=== PATIENT | female | born 1990 | race Caucasian/White ===

== ENCOUNTER 2017-10-11 17:53 | Inpatient (IN) ==
[2017-10-11 20:25] LABS: Bilirubin,Urine Negative (Negative); Blood,Urine Large (Negative); Clarity,Urine Cloudy (Clear); Color,Urine Yellow (Yellow); Glucose,Urine (UA) Normal (Normal); Ketones,Urine Negative (Negative); Leukocyte Esterase,Urine Negative (Negative); Nitrite,Urine Negative (Negative); PH,Urine 5.5 pH Units (5.0-8.0); Protein,Urine 30 mg/dL (Neg-Trace); Specific Gravity,Urine 1.025 (1.010-1.025); Urobilinogen,Urine Normal (Normal)
[2017-10-11 20:26] LABS: Bacteria,Urine None Seen per hpf (None-Few); Hyaline Casts,Urine None Seen per lpf (None-Few); Squamous Epithelial Cell,Urine Many per lpf (None-Few)
[2017-10-11 20:38] LABS: Mean Corpuscular Hemoglobin 16.1 pg (28.0-33.3); Mean Corpuscular Volume 64.2 fL (83.0-100.0); Mean Platelet Volume 8.5 fL (9.4-12.4); Nucleated Red Blood Cells 0.2 /100 WBC (0); Platelet Count 414 K/mcL (140-400); Red Blood Count 4.67 M/mcL (3.82-4.97); Red Cell Distribution Width 27.3 % (11.5-14.5)
[2017-10-11 20:54] LABS: Alanine Aminotransferase 25 Units/L (7-52); Albumin 4.1 g/dL (3.5-5.7); Alkaline Phosphatase 73 Units/L (34-104); Amylase 15 Units/L (29-103); Aspartate Amino Transferase 17 Units/L (13-39); BUN/Creatinine Ratio 23 (6-26); Bilirubin,Direct 0.1 mg/dL (0.0-0.2); Bilirubin,Indirect 0.2 mg/dL (0.0-1.2); Bilirubin,Total 0.3 mg/dL (0.3-1.0); Blood Urea Nitrogen 15 mg/dL (6-20); Calcium 9.8 mg/dL (8.6-10.3); Carbon Dioxide 25 mEq/L (23-29); Chloride 99 mEq/L (98-107); Globulin 4.2 g/dL (2.4-3.5); Glucose 196 mg/dL (70-105); Lipase 22 Units/L (11-82); Osmolality,Calculated 286 (280-300); Sodium 135 mEq/L (136-145); Total Protein 8.3 g/dL (6.4-8.9); eGFR For African Americans > 60 (> 60); eGFR For Non-African Americans > 60 (> 60)
[2017-10-11 20:59] LABS: Hemoglobin 7.5 g/dL (11.5-15.4)
[2017-10-11] MEDS ORDERED: 0.9 % Sodium Chloride 1,000 ML IVC ONE (21:38)
--- NOTE | 2017-10-11 21:42 | Emergency Department Note ---
Disposition Clinical Impression: Abdominal pain Qualifiers: Abdominal location: right upper quadrant Qualified Code(s): R10.11 - Right upper quadrant pain GI bleeding Qualifiers: GI bleed type/associated pathology: unspecified gastrointestinal hemorrhage type Qualified Code(s): K92.2 - Gastrointestinal hemorrhage, unspecified Anemia Qualifiers: Anemia type: unspecified type Qualified Code(s): D64.9 - Anemia, unspecified Disposition: Admitted As Inpatient Condition: Good Referrals: Jimmy Vargas HEALTH INFORMATION PROVIDER [Advanced Practice Nurse] - Forms: ED Satisfaction Letter, Work/School Release Time of Disposition: 22:27 Abdominal Pain HPI - General Chief Complaint: ED Abdominal Pain Stated Complaint: Anemia / Possible Sepsis Time Seen by Provider: 10/11/17 21:14 Source: patient Mode of arrival: ambulatory Limitations: no limitations Nursing Notes Reviewed: Yes Vital Signs Reviewed: Yes - History of Present Illness HPI Narrative: 27-year-old female with history of anemia arrives to the emergency department with nausea, vomiting, tachycardia, right upper quadrant pain. The patient's nausea has been ongoing for the past couple weeks and states that she has been experiencing intermittent abdominal pain since then. She states it worsens when she eats. She denies any other complaints at this time. The patient went to PCPs office 3 days ago for evaluation or this right upper quadrant pain and nausea. She had labs drawn at that time which demonstrated anemia with a hemoglobin of 6.5. The patient was called today and instructed to come to the emergency department for evaluation. Upon arrival to the emergency department her symptoms still continued with the patient's hemoglobin was found to be 7.5. The patient denies any other new complaints. She denies any vaginal bleeding that is abnormal for her but she states she is very heavy menstrual periods. In addition the patient states that she has had intermittent episodes where she has had black tarry stools. The patient states she was evaluated for this roughly a year ago and had endoscopy which demonstrated no acute process. She was also transfused as well. Pt Subjective Complaint: abdominal pain Consistency: intermittent Pain Scale: 4 Quality: cramping, sharp Migration to: no migration Improves with: nothing Worsens with: nothing Associated symptoms: Reports: nausea - Related Data Allergies Allergy/AdvReac Type Severity Reaction Status Date / Time No Known Allergies Allergy Verified 10/11/17 19:59 Constitutional: Denies: fever, chills, weakness Cardiovascular: Denies: chest pain Respiratory: Denies: cough Gastrointestinal: Reports: abdominal pain, nausea. Denies: vomiting, diarrhea, constipation Genitourinary: Denies: urgency Musculoskeletal: Denies: back pain Neurological: Denies: headache Abdominal Pain PMH - Past Medical History Medical history: Reports: diabetes, hyperlipidemia, hypertension Female Surgical History: Reports: no surgical history Psychiatric history: Reports: no psych history - Social History Smoking status: Never smoker Alcohol use: Reports: none Drug use: Reports: none Physical Exam - General Limitations: no limitations General appearance: alert, in no apparent distress - Neck Neck exam: Present: normal inspection, full ROM, trachea midline - Chest Chest inspection: Present: normal inspection, symmetric chest wall rise - Respiratory Respiratory exam: Present: normal lung sounds bilaterally - Cardiovascular Cardiovascular exam: Present: regular rate, normal rhythm, normal heart sounds - Abdominal Exam Abdominal exam: Present: soft, tenderness (RUQ, Epigastric). Absent: distention , guarding, rebound, rigidity - Rectal Exam Rectal exam: Present: heme (+) stool - Extremities Exam Extremities exam: Present: normal inspection, full ROM. Absent: tenderness, pedal edema Course - Reevaluation(s) Reevaluation #1: Bedside ultrasound revealed no enlargement of the gallbladder, no gallbladder wall thickening, no pericholecystic fluid, no enlargement of the common bile duct. There was a small amount of gallbladder sludge noted near the neck. Time: 21:47 Reevaluation #2: Patient is hemoccult positive. Time: 22:04 Vital Signs Temperature 99.5 F 10/11/17 19:59 Pulse Rate 134 10/11/17 19:59 Respiratory Rate 16 10/11/17 19:59 Blood Pressure 157/83 10/11/17 19:59 O2 Sat by Pulse Oximetry 100 10/11/17 19:59 Temperature 99.5 F 10/11/17 19:59 Pulse Rate 110 10/11/17 22:21 Respiratory Rate 20 10/11/17 22:21 Blood Pressure 132/81 10/11/17 22:21 O2 Sat by Pulse Oximetry 100 10/11/17 22:21 Oxygen Delivery Oxygen Delivery Room Air Abdominal Pain - MDM Narrative Medical decision making narrative: Workup in the emergency department demonstrates concern for biliary colic. The patient was initially noted to be tachycardic with a heart rate in the 130s on reevaluation is 1:15. She states that she feels very dizzy on examination. The patient appears to be symptomatic with her anemia. The patient's hemoglobin 1 day ago was roughly 6.5 and on repeat labs today it is 7.5 with likely hemoconcentration. The patient has an extensive history of anemia but given the patient's symptomatic nature I am concerned about the patient and will likely admit the patient to the hospital. Accepted by Dr. Medina. - Medical Records Medical records reviewed: Yes I reviewed the patient's medical records. - Lab Data Lab results reviewed: Yes I reviewed the patient's lab results. Result diagrams: 10/11/17 20:03 10/11/17 20:03 Lab Results 10/11/17 10/11/17 10/11/17 Range/Units 20:03 20:03 20:10 WBC 12.9 H (4.3-11.1) K/mcL RBC 4.67 (3.82-4.97) M/mcL Hgb 7.5 L (11.5-15.4) g/dL Hct 30.0 L (35.3-44.9) % MCV 64.2 L (83.0-100.0) fL MCH 16.1 L (28.0-33.3) pg MCHC 25.0 L (31.6-35.5) g/dL RDW 27.3 H (11.5-14.5) % Plt Count 414 H (140-400) K/mcL MPV 8.5 L (9.4-12.4) fL Seg Neutrophils % 70.0 % Lymphocytes % 16.0 % Monocytes % 10.0 % Eosinophils % 2.0 % Basophils % 2.0 % Neutrophils # 9.0 H (1.6-8.9) K/mcL Lymphocytes # 2.1 (0.6-4.6) K/mcL Monocytes # 1.3 (0.0-1.3) K/mcL Eosinophils # 0.3 (0.0-0.6) K/mcL Basophils # 0.3 H (0.0-0.2) K/mcL Nucleated RBCs/100 WBC 0.2 H (0) /100 WBC Platelet Estimate Slight increase H (Normal) Polychromasia 1+ A (Not Present) Poikilocytosis 1+ A (Not Present) Anisocytosis 3+ A (Not Present) Sodium 135 L (136-145) mEq/L Potassium 4.0 (3.5-5.1) mEq/L Chloride 99 (98-107) mEq/L Carbon Dioxide 25 (23-29) mEq/L BUN 15 (6-20) mg/dL Creatinine 0.65 (0.60-1.20) mg/dL Est GFR ( Amer) > 60 (> 60) Est GFR (Non-Af Amer) > 60 (> 60) BUN/Creatinine Ratio 23 (6-26) Glucose 196 H (70-105) mg/dL Calculated Osmolality 286 (280-300) Calcium 9.8 (8.6-10.3) mg/dL Total Bilirubin 0.3 (0.3-1.0) mg/dL Direct Bilirubin 0.1 (0.0-0.2) mg/dL Indirect Bilirubin 0.2 (0.0-1.2) mg/dL AST 17 (13-39) Units/L ALT 25 (7-52) Units/L Alkaline Phosphatase 73 (34-104) Units/L Serum Total Protein 8.3 (6.4-8.9) g/dL Albumin 4.1 (3.5-5.7) g/dL Globulin 4.2 H (2.4-3.5) g/dL Albumin/Globulin Ratio 1.0 L (1.1-2.2) Amylase 15 L (29-103) Units/L Lipase 22 (11-82) Units/L Urine Color Yellow (Yellow) Urine Clarity Cloudy A (Clear) Urine pH 5.5 (5.0-8.0) pH Units Ur Specific [place] 1.025 (1.010-1.025) Urine Protein 30 H (Neg-Trace) mg/dL Urine Glucose (UA) Normal (Normal) mg/dL Urine Ketones Negative (Negative) mg/dL Urine Blood Large H (Negative) Urine Nitrite Negative (Negative) Urine Bilirubin Negative (Negative) Urine Urobilinogen Normal (Normal) mg/dL Ur Leukocyte Esterase Negative (Negative) Urine Microscopic RBC 5-15 H (0-3) per hpf Urine Microscopic WBC 5-15 H (0-3) per hpf Ur Squamous Epith Cells Many H (None-Few) per lpf Urine Bacteria None Seen (None-Few) per hpf Hyaline Casts None Seen (None-Few) per lpf Ur Culture Indicated? NO (NO) Urine Test (Negative) 10/11/17 Range/Units 20:10 WBC (4.3-11.1) K/mcL RBC (3.82-4.97) M/mcL Hgb (11.5-15.4) g/dL Hct (35.3-44.9) % MCV (83.0-100.0) fL MCH (28.0-33.3) pg MCHC (31.6-35.5) g/dL RDW (11.5-14.5) % Plt Count (140-400) K/mcL MPV (9.4-12.4) fL Seg Neutrophils % % Lymphocytes % % Monocytes % % Eosinophils % % Basophils % % Neutrophils # (1.6-8.9) K/mcL Lymphocytes # (0.6-4.6) K/mcL Monocytes # (0.0-1.3) K/mcL Eosinophils # (0.0-0.6) K/mcL Basophils # (0.0-0.2) K/mcL Nucleated RBCs/100 WBC (0) /100 WBC Platelet Estimate (Normal) Polychromasia (Not Present) Poikilocytosis (Not Present) Anisocytosis (Not Present) Sodium (136-145) mEq/L Potassium (3.5-5.1) mEq/L Chloride (98-107) mEq/L Carbon Dioxide (23-29) mEq/L BUN (6-20) mg/dL Creatinine (0.60-1.20) mg/dL Est GFR ( Amer) (> 60) Est GFR (Non-Af Amer) (> 60) BUN/Creatinine Ratio (6-26) Glucose (70-105) mg/dL Calculated Osmolality (280-300) Calcium (8.6-10.3) mg/dL Total Bilirubin (0.3-1.0) mg/dL Direct Bilirubin (0.0-0.2) mg/dL Indirect Bilirubin (0.0-1.2) mg/dL AST (13-39) Units/L ALT (7-52) Units/L Alkaline Phosphatase (34-104) Units/L Serum Total Protein (6.4-8.9) g/dL Albumin (3.5-5.7) g/dL Globulin (2.4-3.5) g/dL Albumin/Globulin Ratio (1.1-2.2) Amylase (29-103) Units/L Lipase (11-82) Units/L Urine Color (Yellow) Urine Clarity (Clear) Urine pH (5.0-8.0) pH Units Ur Specific [place] (1.010-1.025) Urine Protein (Neg-Trace) mg/dL Urine Glucose (UA) (Normal) mg/dL Urine Ketones (Negative) mg/dL Urine Blood (Negative) Urine Nitrite (Negative) Urine Bilirubin (Negative) Urine Urobilinogen (Normal) mg/dL Ur Leukocyte Esterase (Negative) Urine Microscopic RBC (0-3) per hpf Urine Microscopic WBC (0-3) per hpf Ur Squamous Epith Cells (None-Few) per lpf Urine Bacteria (None-Few) per hpf Hyaline Casts (None-Few) per lpf Ur Culture Indicated? (NO) Urine Test Negative (Negative) Attestation Statement - Attestation Attestation: I, Cy Briggs DO, examined this patient [id number] and my medical decision-making was reviewed with Ge Quezada DO, Resident Physician. I agree with the documented findings, disposition and treatment plan as described except to the extent set forth below. Please see my progress notes for details. 37-year-old female presents emergency room at the request of her primary care provider for evaluation of an abnormal lab. Patient was found to have a hemoglobin of 6.5 approximately 4 days ago. Patient has had chronic anemia. She is currently on iron and started on control medication. She has a long-standing history of abnormal menses and heavy menses. Patient denies any trauma or injuries. Denies any fevers or chills chest pain shortness of breath headache or vision change. Patient is resting comfortably in the bed no distress at this time. She did do some pain in her right upper quadrant of her abdomen after eating food. She has had this on and off for the last several days to even weeks. Patient denies any other specific surgical history other medical issues this time onset of hypertension hyperlipidemia and diabetes. Physical exam is unremarkable except as being a morbidly obese female some mild right upper quadrant tenderness. Neurological her heart is regular but tachycardic. Abdomen is soft. She has no guarding no rigidity. She denies any vaginal discharge bleeding or urinary symptoms at this time. Bedside ultrasound was utilized showing what appears to be a normal-appearing gallbladder with normal dimensions no wall thickening no ductal dilation and no pericholecystic fluid. The lab workup this time except for slightly elevated white blood cell count as well as a hemoglobin of 7.5. She had a previous hemoglobin of 6.5. This is a 1 g increase 4 days. Patient Hemoccult testing completed in emergency room the did appear to be positive. She has no history of peptic ulcer or lower gastrointestinal bleed. Patient will be discussed at length with the findings as well as recommendations. She will most likely require admission for possible EGD and colonoscopy. Patient's labs are consistent with a microcytic anemia. Disposition to be determined. See detailed documentation of the physical exam, medical intervention, medical decision-making and disposition in the resident physician's note. No critical care applied to this patient's treatment course 2225 Patient is been hemodynamically stable. Hospitalist was contacted for admission. They are comfortable with the disposition treatment course plan. Patient is otherwise resting comfortably in the bed. Admission process will be completed at this time.
[2017-10-11 21:50] LABS: Basophils # 0.3 K/mcL (0.0-0.2); Eosinophils # 0.3 K/mcL (0.0-0.6); Lymphocytes # 2.1 K/mcL (0.6-4.6); Monocytes # 1.3 K/mcL (0.0-1.3)
[2017-10-11 21:51] LABS: Anisocytosis 3+ (Not Present)
[2017-10-11 21:52] LABS: Poikilocytosis 1+ (Not Present); Polychromasia 1+ (Not Present)
--- NOTE | 2017-10-12 02:40 | Internal Med History&Physical ---
Date of Encounter: 10/12/17 Time of Encounter: 02:36 Assessment and Plan (1) Diabetes 1.5, managed as type 2 Current visit: Yes Status: Chronic Chronic resume home medication and place on sliding scale (2) HTN (hypertension) Current visit: Yes Status: Chronic Chronic and well controlled Qualifiers: Hypertension type: essential hypertension Qualified Code(s): I10 - Essential (primary) hypertension (3) Obesity Current visit: Yes Status: Chronic Qualifiers: Obesity type: due to excess calories Obesity classification: unspecified obesity classification Serious obesity comorbidity presence: unspecified whether serious comorbidity present Qualified Code(s): E66.09 - Other obesity due to excess calories (4) Hyperlipidemia Current visit: Yes Status: Chronic Chronic check lipid profile in a.m. Qualifiers: Hyperlipidemia type: pure hypercholesterolemia Qualified Code(s): E78.00 - Pure hypercholesterolemia, unspecified; E78.0 - Pure hypercholesterolemia (5) Polycystic ovarian disease Current visit: Yes Status: Acute Possible contribution to her anemia with heavy menstrual bleeding (6) Abdominal pain Current visit: Yes Status: Acute Epigastric pain worse with eating is very suggestive of gastric ulcer Qualifiers: Abdominal location: epigastric Qualified Code(s): R10.13 - Epigastric pain (7) Anemia Current visit: Yes Status: Acute Anemia with low MCV very likely iron deficiency anemia Qualifiers: Anemia type: iron deficiency Iron deficiency anemia type: unspecified iron deficiency Qualified Code(s): D50.9 - Iron deficiency anemia, unspecified (8) GI bleeding Current visit: Yes Status: Acute GI bleed with intermittent black stools suggestive of upper GI bleed very likely gastric ulcer will keep nothing by mouth consult GI Qualifiers: GI bleed type/associated pathology: gastric ulcer Qualified Code(s): K25.4 - Chronic or unspecified gastric ulcer with hemorrhage Internal Medicine - H&P: HPI Chief complaint: severe anemia Admitted From: Emergency Dept Plans for Post Hospital Care: Home History of present illness: Ms. Loo is a 27 year old female Patient with history of diabetes, obesity, high cholesterol, hypertension, polycystic ovarian syndrome being controlled with bith control pill. Patient was seen by primary physician due to right upper quadrant pain with some nausea lab drawn in the office 3 days ago hemoglobin came back 6.5 patient was called and sent to the emergency room for further evaluation. Patient reports she had nausea vomiting and right upper quadrant pain for about 2 weeks pain usually worse after she eats also stated that she has heavy menstrual. which is being controlled with control pill also has had intermittent black stools emergency room here hemoglobin was 7.5 heart rate was 130 sinus patient also has some symptoms of lightheadedness. In the emergency room she was heme positive stool Being admitted for a GI evaluation. Past Med Surg Social Fam HX - Past Medical History Medical history: diabetes, hyperlipidemia, hypertension Psychiatric history: no psych history - Social History Smoking Status: Never smoker Alcohol use: none Drug use: none - Family History Mother Hx Family Cancer: Yes (Thyroid) Hx Family Reproductive Disorders: (Ovarian/Cervial Ca) Internal Medicine - H&P: Meds 3 Allergy/AdvReac Type Severity Reaction Status Date / Time No Known Allergies Allergy Verified 10/11/17 19:59 ROS unobtainable: other All Systems PM: A 10-system review of systems was performed and is negative for pertinent findings except as documented above in the HPI. - Constitutional Vitals: Temp Pulse Resp BP Pulse Ox 98.5 F 113 16 120/79 97 10/12/17 00:47 10/12/17 00:47 10/12/17 00:47 10/12/17 00:47 10/12/17 00:47 General appearance: Present: obese - Eye Eye exam: Present: PERRL, conjuntiva pink, sclera anicteric Pupils: Present: PERRL - Neck Neck exam general surgery: Present: supple, trachea midline. Absent: lymphadenopathy - Respiratory Respiratory exam: Present: CTAB. Absent: accessory muscle use, rales, rhonchi, wheezes - Cardiovascular Cardiovascular exam: Present: RRR, +S1, +S2, tachycardia. Absent: diastolic murmur, gallop, rubs, systolic murmur - GI/Abdominal GI/Abdominal exam: Present: normal bowel sounds, soft, no peritoneal signs. Absent: distended, tenderness - Extremities Exam Extremities exam: Present: warm, radial pulses palpable and symmetrical. Absent : calf tenderness, cyanotic, pedal edema Internal Med - H&P Results - Labs CBC & Chem 7: 10/11/17 20:03 10/11/17 20:03
[2017-10-12] MEDS ORDERED: Naloxone 0.4 MG/ML INJ IVP PRN (02:44)
[2017-10-12] MEDS: 0.9 % Sodium Chloride 1,000 ML IVC SCH ×2 (04:26→20:07)
[2017-10-12 06:20] LABS: Hemoglobin 6.3 g/dL (11.5-15.4)
[2017-10-12 06:21] LABS: Basophils # 0.1 K/mcL (0.0-0.2); Basophils % 0.5 %; Eosinophils # 0.3 K/mcL (0.0-0.6); Eosinophils % 2.7 %; Hematocrit 25.9 % (35.3-44.9); Immature Granulocytes % 0.4 % (0-4); Lymphocytes # 3.4 K/mcL (0.6-4.6); Lymphocytes % 35.2 %; Mean Corpuscular HGB Conc 24.3 g/dL (31.6-35.5); Mean Corpuscular Hemoglobin 15.8 pg (28.0-33.3); Mean Corpuscular Volume 64.9 fL (83.0-100.0); Mean Platelet Volume 8.6 fL (9.4-12.4); Monocytes # 0.5 K/mcL (0.0-1.3); Neutrophils # 5.5 K/mcL (1.6-8.9); Platelet Count 345 K/mcL (140-400); Red Blood Count 3.99 M/mcL (3.82-4.97); Red Cell Distribution Width 26.6 % (11.5-14.5); Segmented Neutrophils % 56.2 %
[2017-10-12 06:32] LABS: % Iron Saturation 3 % (15-50); Iron 15 mcg/dL (50-170); Transferrin 374 mg/dL (203-362)
[2017-10-12 06:33] LABS: Chol/HDL Ratio 4.8 (0-4.9); Cholesterol 100 mg/dL (< 200); HDL Cholesterol 21 mg/dL (40-59); Triglycerides 439 mg/dL (< 150)
[2017-10-12 06:34] LABS: Alanine Aminotransferase 19 Units/L (7-52); Albumin 3.3 g/dL (3.5-5.7); Alkaline Phosphatase 59 Units/L (34-104); Aspartate Amino Transferase 15 Units/L (13-39); BUN/Creatinine Ratio 27 (6-26); Bilirubin,Total 0.4 mg/dL (0.3-1.0); Blood Urea Nitrogen 13 mg/dL (6-20); Calcium 8.6 mg/dL (8.6-10.3); Carbon Dioxide 23 mEq/L (23-29); Chloride 103 mEq/L (98-107); Globulin 3.3 g/dL (2.4-3.5); Glucose 156 mg/dL (70-105); Magnesium 1.9 mg/dL (1.6-2.6); Osmolality,Calculated 285 (280-300); Sodium 136 mEq/L (136-145); Total Protein 6.6 g/dL (6.4-8.9); eGFR For African Americans > 60 (> 60); eGFR For Non-African Americans > 60 (> 60)
[2017-10-12 08:10] LABS: Anisocytosis 3+ (Not Present)
[2017-10-12 08:11] LABS: Polychromasia 1+ (Not Present)
[2017-10-12 08:12] LABS: Hypochromasia Present (Not Present); Microcytosis Present (Not Present); Platelet Estimate Normal (Normal)
[2017-10-12] MEDS: Pantoprazole 40 MG VIAL IVP SCH (09:15)
--- NOTE | 2017-10-12 10:38 | Gastroenterology Consult Note ---
<Anusha Ray - Last Filed: 10/12/17 10:58> Date of Encounter: 10/12/17 Time of Encounter: 09:50 - Assessment and plan (1) Anemia Current Visit: Yes Status: Acute Assessment and plan: 27 year old female who presents with RUQ pain and anemia. Hgb is 6.3 this am, will transfuse 2 units prbcs. Will plan for EGD today, may need colonoscopy. Iron is also low, will give iron infusion. She had episode of anemia 2 years ago with normal EGD/colonoscopy. She is microcytic on labs. She also reports heavy menstrual periods. Continue, PPI, monitor H&H, may need hematology consult. Qualifiers: Anemia type: iron deficiency Iron deficiency anemia type: unspecified iron deficiency Qualified Code(s): D50.9 - Iron deficiency anemia, unspecified - Time Spent With Patient Total time spent is greater than 50% in coordination of care (as documented) at patient's floor/unit and/or counseling patient: GI History of Present Illness - Data of Consult Patient: new to practice Consult date: 10/12/17 Requesting Physician: Charly Maza MD - Consult Narrative Reason for consult: anemia History of present illness: Ms. Loo is a 27 year old female with history of uncontrolled diabetes, last Hgb A1c 8.1, obesity, hyperlipidemia, hypertension, polycystic ovarian syndrome being controlled with control pill. Patient was recently seen by PCP for RUQ pain and GB us was ordered and labs at that time showed Hgb 6.5. She was sent to ER for evaluation. In ER her hgb was 7.5, has dropped to 6.3 today. She reports near constant nausea for the past 2 weeks worse after she eats. She also reports tarry stools 2-4 times a month for the past few months as well as heavy menstrual periods. In ER her heart rate was 130 sinus rhythm and she had symptoms of lightheadedness. Stool was positive for occult blood in the past. She reports an episode of anemia in 2016 which required blood transfusion and she had scopes done at [facility] at that time. She does reports she started on iron supplements about a month ago. Colonoscopy: 2016 normal per pt EGD: 2016 normal per pt NSAIDS/ASA: denies Anticoagulants: denies Past Med Surg Social Fam HX - Past Medical History Medical history: diabetes, hyperlipidemia, hypertension Psychiatric history: no psych history - Social History Smoking Status: Never smoker Alcohol use: none Drug use: none - Family History Mother Hx Family Cancer: Yes (Thyroid) Hx Family Reproductive Disorders: (Ovarian/Cervial Ca) Review of Systems: GI: as per [place] GENERAL: denies fever or chills EYES: denies yellow discoloration ENT: denies pain with swallowing or difficulty swallowing CARDIO: denies chest pain, palpitations RESP: No Shortness of breath with exertion : denies change in color of urine NEURO: denies any weakness HEME: Denies any bruising MS: denies joint pain, joint swelling or back pain. DERM: denies rash or itching PSYCH: Denies history of anxiety or depression - Constitutional Vitals: Temp Pulse Resp BP Pulse Ox 98.3 F 93 18 135/86 98 10/12/17 07:26 10/12/17 07:26 10/12/17 07:26 10/12/17 07:26 10/12/17 07:26 Exam: CONSTITUTIONAL:~alert, no acute distress.~HEAD:~normocephalic.~EYES:~no jaundice.~NECK:~no obvious swelling.~HEART:~regular rate and rhythm, no murmurs. ~LUNGS:~bilateral good air entry.~ABDOMEN:~non distended, soft, tender epigastric area, no masses pulpable, no organomegaly.~RECTAL EXAM:~Deferred.~ EXTREMITIES:~no clubbing, cyanosis or edema.~SKIN:~pallor noted, no stigmata of chronic liver disease.~NEUROLOGIC:~no obvious focal defect.~~~~ Results - Labs CBC & Chem 7: 10/12/17 05:47 10/12/17 05:47 Labs: Last Result Calcium 8.6 mg/dL (8.6-10.3) 10/12/17 05:47 Iron 15 mcg/dL (50-170) L 10/12/17 05:47 % Saturation 3 % (15-50) L 10/12/17 05:47 Transferrin 374 mg/dL (203-362) H 10/12/17 05:47 Triglycerides 439 mg/dL (< 150) H 10/12/17 05:47 Entire Visit Hgb 6.3 g/dL (11.5-15.4) L 10/12/17 05:47 Hct 25.9 % (35.3-44.9) L 10/12/17 05:47 Total Bilirubin 0.4 mg/dL (0.3-1.0) 10/12/17 05:47 AST 15 Units/L (13-39) 10/12/17 05:47 ALT 19 Units/L (7-52) 10/12/17 05:47 Amylase 15 Units/L (29-103) L 10/11/17 20:03 Lipase 22 Units/L (11-82) 10/11/17 20:03 Consult Discharge Plan - Plan Referrals: Jimmy Vargas OFFSET LITHOGRAPHIC PRESS SETTER [Primary Care Provider] - <Rogerio Jj - Last Filed: 10/12/17 14:09> Date of Encounter: 10/12/17 Time of Encounter: 13:00 - Time Spent With Patient Total time spent is greater than 50% in coordination of care (as documented) at patient's floor/unit and/or counseling patient: GI History of Present Illness - Data of Consult Requesting Physician: Charly Maza MD - Consult Narrative History of present illness: Ms. Loo is a 27 year old female - Constitutional Vitals: Temp Pulse Resp BP Pulse Ox 97.9 F 98 18 146/90 95 10/12/17 13:29 10/12/17 13:29 10/12/17 13:29 10/12/17 13:29 10/12/17 13:29 Results - Labs CBC & Chem 7: 10/12/17 05:47 10/12/17 05:47 Labs: Last Result Calcium 8.6 mg/dL (8.6-10.3) 10/12/17 05:47 Iron 15 mcg/dL (50-170) L 10/12/17 05:47 % Saturation 3 % (15-50) L 10/12/17 05:47 Transferrin 374 mg/dL (203-362) H 10/12/17 05:47 Triglycerides 439 mg/dL (< 150) H 10/12/17 05:47 Entire Visit Hgb 6.3 g/dL (11.5-15.4) L 10/12/17 05:47 Hct 25.9 % (35.3-44.9) L 10/12/17 05:47 Total Bilirubin 0.4 mg/dL (0.3-1.0) 10/12/17 05:47 AST 15 Units/L (13-39) 10/12/17 05:47 ALT 19 Units/L (7-52) 10/12/17 05:47 Amylase 15 Units/L (29-103) L 10/11/17 20:03 Lipase 22 Units/L (11-82) 10/11/17 20:03 - Attending Attestation I have personally performed a face to face evaluation on this patient. I have reviewed and agree with the care plan. History and Exam by me shows: Patient with severe iron deficiency anemia. Does have some epigastric pain and some black stool history. Recommendation: EGD today if negative then colonoscopy
[2017-10-12] MEDS ORDERED: 0.9 % Sodium Chloride 250 ML ONE ×2 (10:48→14:25)
[2017-10-12] MEDS ORDERED: Dextrose Gel 15 GM/37.5 ML TUBE PO PRN ×2 (12:06)
[2017-10-12] MEDS ORDERED: D5% in Water 1,000 ML IVC PRN (12:06)
[2017-10-12] MEDS ORDERED: *HR* Dextrose 50 % in Water (Syg) 50 ML SYRINGE IVP PRN (12:06)
[2017-10-12] MEDS ORDERED: Lidocaine -MPF 2% 2 ML VIAL ONE (12:42)
[2017-10-12] MEDS ORDERED: *HR* Propofol 200 MG/20 ML VIAL IVP ONE (12:42)
[2017-10-12] MEDS: Insulin LISPRO 300 UNITS/3 ML VIAL SQ SCH ×2 (12:55→17:06)
--- NOTE | 2017-10-12 13:43 | Anesthesia Evaluation PreOp ---
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 ANEMIA , HB 6.3, 1 UNIT PRBC INFUSED. PCOS) Anesthesia History: No Prior Anesthetic Complications, Past Anesthesia : No Test: Negative Alcohol Use: none Drug use: none Medications and Allergies Atorvastatin Calcium [Lipitor] 20 mg PO HS 10/12/17 [History] Ferrous Sulfate [Iron] 325 mg PO DAILY 10/12/17 [History] Lisinopril-HCTZ 20-12.5 [Prinzide 20-12.5] 1 tab PO DAILY 10/12/17 [History] Metformin HCl [Glucophage] 1,000 mg PO BID 10/12/17 [History] Norgestimate-Ethinyl Estradiol [Sprintec 28 Day Tablet] 1 tab PO DAILY 10/12/17 [History] 3 Allergy/AdvReac Type Severity Reaction Status Date / Time No Known Allergies Allergy Verified 10/12/17 09:46 - Meds/Allergy Pre-op Review Medications Reviewed: Yes Allergies Reviewed: Yes Anesthesia Results - Labs 10/12/17 05:47 10/12/17 05:47 Anesthesia Exam Vital Signs/O2 Sat/Glucose, Most Recent Temp Pulse Resp BP Pulse Ox 97.9 F 98 18 146/90 95 10/12/17 13:29 10/12/17 13:29 10/12/17 13:29 10/12/17 13:29 10/12/17 13:29 Blood Glucose* 146 - HEENT Mallampati: I Teeth: Normal - Cardiac Rhythm: Regular (TACHY) - Pulmonary Breath Sounds: bilateral Clear Anesthesia Assess/Plan ASA Score: 3 Modified Dryden Scale for Level of Consciousness: Cooperative, oriented, and tranquil Anesthetic Plan: MAC Monitoring Plan: Standard Monitors Recovery Plan: Other Anes Supervising Prov Stmt: I have participated in the evaluation of this patient. Patient informed and consented. Risks, benefits, and alternatives discussed. Patient wishes to proceed.
[2017-10-12] MEDS ORDERED: SODIUM CHLORIDE/NAHCO3/KCL/PEG 4,000 ML SOLN.RECON PO ONE (14:07)
--- NOTE | 2017-10-12 15:21 | Anesthesia Evaluation Post Op ---
Date of Encounter: 10/12/17 Time of Encounter: 14:15 - Vital Signs Vital Signs: Vital Signs/O2 Sat/Glucose, Most Recent Temp Pulse Resp BP Pulse Ox 98.6 F 104 18 121/77 96 10/12/17 15:07 10/12/17 15:07 10/12/17 15:07 10/12/17 15:07 10/12/17 15:07 Blood Glucose* 146 - Lungs Lungs: Clear Ascult./Percussion - Airway Airway: Non-obstructed - Cardiovascular Regular Rate, Irregular Rate (baseline is tachy), Baseline Rhythm - Mental Status Mental Status: Alert & Oriented, Answers Appropriately - Pain Pain Scale: 0 Pain Scale used: Numeric (1 - 10) - Nausea Vomiting Nausea Vomiting: Not Present - Hydration Hydration: NPO Notes: 10/12/17 15:21 naac - Discharge PostOp Status: Transfer Patient to floor
--- NOTE | 2017-10-12 17:48 | Internal Med Progress Note ---
Date of Encounter: 10/12/17 Time of Encounter: 13:30 - Assessment and plan (1) Anemia Current Visit: Yes Status: Acute Assessment and plan: Multi factorial GI bleed + Menorrhgia her Hb this morning 6.3 Ordered 2 U PRBC GI consulted scheduled for EGD today and Colonoscopy in AM Qualifiers: Anemia type: iron deficiency Iron deficiency anemia type: unspecified iron deficiency Qualified Code(s): D50.9 - Iron deficiency anemia, unspecified (2) Iron deficiency anemia Current Visit: Yes Status: Acute Assessment and plan: She does have severe Iron def anemia Will start her on IV Venofer Qualifiers: Iron deficiency anemia type: chronic blood loss Qualified Code(s): D50.0 - Iron deficiency anemia secondary to blood loss (chronic) (3) Menorrhagia Current Visit: Yes Status: Acute Assessment and plan: Seems to be stable with current control pills pt has been on Qualifiers: Menorrahagia type: with regular cycle Qualified Code(s): N92.0 - Excessive and frequent menstruation with regular cycle (4) GI bleeding Current Visit: Yes Status: Acute Assessment and plan: GI consulted Qualifiers: GI bleed type/associated pathology: gastric ulcer Qualified Code(s): K25.4 - Chronic or unspecified gastric ulcer with hemorrhage (5) Polycystic ovarian disease Current Visit: Yes Status: Acute (6) HTN (hypertension) Current Visit: Yes Status: Chronic Assessment and plan: resumed home meds Qualifiers: Hypertension type: essential hypertension Qualified Code(s): I10 - Essential (primary) hypertension (7) Hyperlipidemia Current Visit: Yes Status: Chronic Qualifiers: Hyperlipidemia type: pure hypercholesterolemia Qualified Code(s): E78.00 - Pure hypercholesterolemia, unspecified; E78.0 - Pure hypercholesterolemia (8) Obesity Current Visit: Yes Status: Chronic Qualifiers: Obesity type: due to excess calories Obesity classification: unspecified obesity classification Serious obesity comorbidity presence: unspecified whether serious comorbidity present Qualified Code(s): E66.09 - Other obesity due to excess calories (9) DM2 (diabetes mellitus, type 2) Current Visit: Yes Status: Acute Assessment and plan: on Metformin started on ISS at low Qualifiers: Diabetes mellitus alf insulin use: without alf use Diabetes mellitus complication status: without complication Qualified Code(s): E11.9 - Type 2 diabetes mellitus without complications - Subjective Interval history: Ms. Loo is a 27 year old female with history of diabetes, obesity, high cholesterol, hypertension, polycystic ovarian syndrome being controlled with bith control pill. Patient was seen by primary physician due to right upper quadrant pain with some nausea lab drawn in the office 3 days ago hemoglobin came back 6.5 patient was called and sent to the emergency room for further evaluation. Patient reports she had nausea vomiting and right upper quadrant pain for about 2 weeks. She does have intermittent black stools emergency room here hemoglobin was 7.5 . She is alert, awake and O x 3 . Denied any CP / SOB. - Constitutional Vitals: Temp Pulse Resp BP Pulse Ox 98.0 F 100 17 134/84 95 10/12/17 16:07 10/12/17 16:07 10/12/17 16:07 10/12/17 16:07 10/12/17 16:07 General appearance: Present: A&O X 3, no acute distress, obese, answers questions appropriately - Head Head exam: Present: atraumatic, normal inspection - Neck Neck exam general surgery: Present: supple - Respiratory Respiratory exam: Present: decreased breath sounds. Absent: rales, respiratory distress, rhonchi, wheezes - Cardiovascular Cardiovascular exam: Present: RRR, +S1, +S2. Absent: tachycardia - GI/Abdominal GI/Abdominal exam: Present: normal bowel sounds, soft. Absent: rebound, rigid, tenderness - Extremities Exam Extremities exam: Absent: calf tenderness, pedal edema, tenderness - Back Exam Back exam: Absent: CVA tenderness (L), CVA tenderness (R) - Neurological Exam Neurological exam: Present: alert, oriented X3 - Psychiatric Psychiatric exam: Present: normal affect, normal mood Internal Medicine: Result - Labs CBC & Chem 7: 10/12/17 05:47 10/12/17 05:47 Labs: Short CBC 10/12/17 Range/Units 05:47 WBC 9.7 (4.3-11.1) K/mcL Hgb 6.3 L (11.5-15.4) g/dL Hct 25.9 L (35.3-44.9) % Plt Count 345 (140-400) K/mcL Neutrophils # 5.5 (1.6-8.9) K/mcL BMP 10/12/17 05:47 Sodium 136 Potassium 4.0 Chloride 103 Carbon Dioxide 23 BUN 13 Creatinine 0.48 L Glucose 156 H Calcium 8.6 Liver Function 10/12/17 Range/Units 05:47 Total Bilirubin 0.4 (0.3-1.0) mg/dL AST 15 (13-39) Units/L ALT 19 (7-52) Units/L Alkaline Phosphatase 59 (34-104) Units/L Albumin 3.3 L (3.5-5.7) g/dL - VTE Reasons for not Prescribing Prophylaxis: Medical contraindication Documentation of Mechanical Device: Intermittent pneumatic compression device Consult Discharge Plan - Plan Referrals: Jimmy Vragas CNP [Primary Care Provider] -
[2017-10-12 19:58] LABS: Hematocrit 31.1 % (35.3-44.9)
[2017-10-12 20:00] LABS: Hemoglobin 8.2 g/dL (11.5-15.4)
[2017-10-12 23:08] LABS: Hematocrit 30.1 % (35.3-44.9); Hemoglobin 8.3 g/dL (11.5-15.4)
[2017-10-12 23:26] LABS: % Iron Saturation 50 % (15-50); Iron 271 mcg/dL (50-170); Transferrin 388 mg/dL (203-362)
[2017-10-13] MEDS: Insulin LISPRO 300 UNITS/3 ML VIAL SQ SCH ×5 (00:17→20:35)
[2017-10-13 05:40] LABS: Basophils % 0.2 %; Red Cell Distribution Width 27.4 % (11.5-14.5)
[2017-10-13 05:41] LABS: Eosinophils # 0.2 K/mcL (0.0-0.6); Eosinophils % 1.8 %; Hematocrit 28.8 % (35.3-44.9); Hemoglobin 7.6 g/dL (11.5-15.4); Immature Granulocytes % 0.6 % (0-4); Lymphocytes # 2.8 K/mcL (0.6-4.6); Lymphocytes % 31.2 %; Mean Corpuscular HGB Conc 26.4 g/dL (31.6-35.5); Mean Corpuscular Hemoglobin 17.9 pg (28.0-33.3); Mean Corpuscular Volume 67.8 fL (83.0-100.0); Mean Platelet Volume 8.1 fL (9.4-12.4); Monocytes # 0.5 K/mcL (0.0-1.3); Monocytes % 5.2 %; Neutrophils # 5.4 K/mcL (1.6-8.9); Platelet Count 260 K/mcL (140-400); Red Blood Count 4.25 M/mcL (3.82-4.97)
[2017-10-13 06:25] LABS: Hypochromasia Present (Not Present)
[2017-10-13 06:26] LABS: Anisocytosis 3+ (Not Present); Microcytosis Present (Not Present); Polychromasia 1+ (Not Present)
[2017-10-13 06:27] LABS: Platelet Estimate Normal (Normal)
[2017-10-13] MEDS: Pantoprazole 40 MG VIAL IVP SCH (08:14)
--- NOTE | 2017-10-13 16:42 | Internal Med Progress Note ---
Date of Encounter: 10/13/17 Time of Encounter: 11:00 - Assessment and plan (1) Anemia Current Visit: Yes Status: Acute Assessment and plan: Multi factorial GI bleed + Menorrhgia Hb improved to 8.3 y/d and dropped down to 7.6 this morning s/p 2 U PRBC cont close monitoring d/c IVF GI on board s/p EGD showed mucosal nodule - no acute bleeding scheduled for Colonoscopy later today Qualifiers: Anemia type: iron deficiency Iron deficiency anemia type: unspecified iron deficiency Qualified Code(s): D50.9 - Iron deficiency anemia, unspecified (2) Iron deficiency anemia Current Visit: Yes Status: Acute Assessment and plan: She does have severe micocytic and hypochromic anemia significantly low Iron cont iV Venofer daily Qualifiers: Iron deficiency anemia type: chronic blood loss Qualified Code(s): D50.0 - Iron deficiency anemia secondary to blood loss (chronic) (3) Menorrhagia Current Visit: Yes Status: Acute Assessment and plan: cont OCP 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 Qualifiers: Menorrahagia type: with regular cycle Qualified Code(s): N92.0 - Excessive and frequent menstruation with regular cycle (4) GI bleeding Current Visit: Yes Status: Acute Assessment and plan: s/p EGD Scheduled for Colonoscopy today Qualifiers: GI bleed type/associated pathology: gastric ulcer Qualified Code(s): K25.4 - Chronic or unspecified gastric ulcer with hemorrhage (5) Polycystic ovarian disease Current Visit: Yes Status: Acute (6) HTN (hypertension) Current Visit: Yes Status: Chronic Assessment and plan: Resumed home medications Qualifiers: Hypertension type: essential hypertension Qualified Code(s): I10 - Essential (primary) hypertension (7) Hyperlipidemia Current Visit: Yes Status: Chronic Qualifiers: Hyperlipidemia type: pure hypercholesterolemia Qualified Code(s): E78.00 - Pure hypercholesterolemia, unspecified; E78.0 - Pure hypercholesterolemia (8) Obesity Current Visit: Yes Status: Chronic Qualifiers: Obesity type: due to excess calories Obesity classification: unspecified obesity classification Serious obesity comorbidity presence: unspecified whether serious comorbidity present Qualified Code(s): E66.09 - Other obesity due to excess calories (9) DM2 (diabetes mellitus, type 2) Current Visit: Yes Status: Acute Assessment and plan: on Metformin Cont ISS at low Qualifiers: Diabetes mellitus correction insulin use: 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 Loo is a 27 year old female with history of diabetes, obesity, high cholesterol, hypertension, polycystic ovarian syndrome being controlled with bith control pill. Patient was seen by primary physician due to right upper quadrant pain with some nausea lab drawn in the office 3 days ago hemoglobin came back 6.5 patient was called and sent to the emergency room for further evaluation. Patient reports she had nausea vomiting and right upper quadrant pain for about 2 weeks. She does have intermittent black stools emergency room here hemoglobin was 7.5 . She is alert, awake and O x 3 . Denied any CP / SOB. Feels little better today - Constitutional Vitals: Temp Pulse Resp BP Pulse Ox 98.7 F 105 20 151/103 97 10/13/17 14:54 10/13/17 14:54 10/13/17 14:54 10/13/17 14:54 10/13/17 14:54 General appearance: Present: A&O X 3, no acute distress, obese, answers questions appropriately - Head Head exam: Present: atraumatic, normal inspection - Neck Neck exam general surgery: Present: supple - Respiratory Respiratory exam: Present: decreased breath sounds. Absent: rales, respiratory distress, rhonchi, wheezes - Cardiovascular Cardiovascular exam: Present: RRR, +S1, +S2. Absent: tachycardia - GI/Abdominal GI/Abdominal exam: Present: normal bowel sounds, soft. Absent: rebound, rigid, tenderness - Extremities Exam Extremities exam: Absent: calf tenderness, pedal edema, tenderness - Back Exam Back exam: Absent: CVA tenderness (L), CVA tenderness (R) - Neurological Exam Neurological exam: Present: alert, oriented X3 - Psychiatric Psychiatric exam: Present: normal affect, normal mood - Skin Skin exam: Absent: rash Internal Medicine: Result - Labs CBC & Chem 7: 10/13/17 04:44 10/12/17 05:47 Labs: Short CBC 10/12/17 10/12/17 10/13/17 Range/Units 19:30 22:50 04:44 WBC 8.8 (4.3-11.1) K/mcL Hgb 8.2 L D 8.3 L 7.6 L (11.5-15.4) g/dL Hct 31.1 L 30.1 L 28.8 L (35.3-44.9) % Plt Count 260 (140-400) K/mcL Neutrophils # 5.4 (1.6-8.9) K/mcL - VTE Reasons for not Prescribing Prophylaxis: Medical contraindication Documentation of Mechanical Device: Intermittent pneumatic compression device Consult Discharge Plan - Plan Referrals: Jimmy Vargas CNP [Primary Care Provider] -
[2017-10-13 17:24] LABS: Hematocrit 29.9 % (35.3-44.9); Hemoglobin 8.1 g/dL (11.5-15.4)
[2017-10-13] MEDS ORDERED: *HR* Midazolam HCl 5 MG/5 ML VIAL IVP ONE (17:50)
[2017-10-13] MEDS ORDERED: *HR* FentaNYL (PF) 100 MCG/2 ML VIAL ONE (17:51)
[2017-10-13] MEDS ORDERED: *HR* FentaNYL (PF) 100 MCG/2 ML VIAL IVP ONE (18:04)
[2017-10-13] MEDS ORDERED: *HR* Midazolam HCl 2 MG/2 ML VIAL IVP ONE (18:04)
[2017-10-13] MEDS ORDERED: Insulin LISPRO 300 UNITS/3 ML VIAL SQ SCH ×2 (21:00)
[2017-10-14 02:51] LABS: Basophils % 0.3 %; Hemoglobin 7.7 g/dL (11.5-15.4); Immature Granulocytes % 0.3 % (0-4); Immature Platelets 0.7 % (1.1-6.1); Lymphocytes % 31.6 %; Mean Platelet Volume 8.1 fL (9.4-12.4); Segmented Neutrophils % 61.5 %
[2017-10-14 02:53] LABS: Eosinophils # 0.2 K/mcL (0.0-0.6); Eosinophils % 1.9 %; Hematocrit 29.2 % (35.3-44.9); Lymphocytes # 2.9 K/mcL (0.6-4.6); Mean Corpuscular HGB Conc 26.4 g/dL (31.6-35.5); Mean Corpuscular Hemoglobin 18.2 pg (28.0-33.3); Mean Corpuscular Volume 68.9 fL (83.0-100.0); Monocytes # 0.4 K/mcL (0.0-1.3); Monocytes % 4.4 %; Nucleated Red Blood Cells 0.2 /100 WBC (0); Platelet Count 295 K/mcL (140-400); Red Blood Count 4.24 M/mcL (3.82-4.97); Red Cell Distribution Width 27.7 % (11.5-14.5)
[2017-10-14 02:56] LABS: Neutrophils # 5.7 K/mcL (1.6-8.9)
[2017-10-14 03:39] LABS: Anisocytosis 2+ (Not Present); Hypochromasia Present (Not Present); Microcytosis Present (Not Present)
[2017-10-14 03:40] LABS: Platelet Estimate Normal (Normal)
[2017-10-14 03:41] LABS: Poikilocytosis 1+ (Not Present)
--- NOTE | 2017-10-14 09:06 | Discharge Summary ---
- NOTES TO OUTPATIENT PROVIDER Notes to Outpatient Provider: f/u with GI Dr. Jj in one week to discuss about your EGD biopsy results. f/u with your Die Engraver in 1-2 weeks. Continue Taking Iron tablets. Use laxatives for constipation. For your blood sugars / DM you may need second medication with Metformin talk to your PCP please. Orders not resulted at time of discharge: Pending orders 10/12/17 14:03 Surgical Pathology [PTH] Routine 10/12/17 19:30 Celiac Disease Reflex [place] Routine Date of Encounter: 10/14/17 Time of Encounter: 09:04 - Discharge Diagnosis (1) Anemia Priority: Primary Status: Acute Qualifiers: Anemia type: iron deficiency Iron deficiency anemia type: unspecified iron deficiency Qualified Code(s): D50.9 - Iron deficiency anemia, unspecified (2) Iron deficiency anemia Priority: Primary Status: Acute Qualifiers: Iron deficiency anemia type: chronic blood loss Qualified Code(s): D50.0 - Iron deficiency anemia secondary to blood loss (chronic) (3) Menorrhagia Priority: Secondary Status: Acute Qualifiers: Menorrahagia type: with regular cycle Qualified Code(s): N92.0 - Excessive and frequent menstruation with regular cycle (4) GI bleeding Priority: Primary Status: Acute Qualifiers: GI bleed type/associated pathology: gastric ulcer Qualified Code(s): K25.4 - Chronic or unspecified gastric ulcer with hemorrhage (5) Polycystic ovarian disease Priority: Secondary Status: Acute (6) HTN (hypertension) Priority: Secondary Status: Chronic Qualifiers: Hypertension type: essential hypertension Qualified Code(s): I10 - Essential (primary) hypertension (7) Hyperlipidemia Priority: Secondary Status: Chronic Qualifiers: Hyperlipidemia type: pure hypercholesterolemia Qualified Code(s): E78.00 - Pure hypercholesterolemia, unspecified; E78.0 - Pure hypercholesterolemia (8) Obesity Priority: Secondary Status: Chronic Qualifiers: Obesity type: due to excess calories Obesity classification: unspecified obesity classification Serious obesity comorbidity presence: unspecified whether serious comorbidity present Qualified Code(s): E66.09 - Other obesity due to excess calories (9) DM2 (diabetes mellitus, type 2) Priority: Secondary Status: Acute Qualifiers: Diabetes mellitus nursing home insulin use: without terminal 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 Loo is a 27 year old female with history of diabetes, obesity, high cholesterol, hypertension, polycystic ovarian syndrome being controlled with bith control pill. Patient was seen by primary physician due to right upper quadrant pain with some nausea lab drawn in the office 3 days ago hemoglobin came back 6.5 patient was called and sent to the emergency room for further evaluation. Patient reports she had nausea vomiting and right upper quadrant pain for about 2 weeks. Pt was admitted in the hospital started her on symptomatic and supportive care. Her hemoglobin dropped down to 6.3, she received 2 units of PRBC, now her Hb improved and stable at 7.7. Her EGD did not show any active bleeding ulcers other than few mucosal nodules. Biopsies were taken. Colonoscopy came back as completely normal. Her Iron levels are significantly low, so she received 3 doses of IV venofer here. Will d/c her home today in stable condition with PO Iron tabs and PPI. - Time Spent with Patient Total time spent providing and/or coordinating discharge services: - Discharge Medications Prescriptions: Ferrous Sulfate [Iron] 325 mg PO TID #90 tablet Omeprazole [PriLOSEC] 20 mg PO DAILY #30 cap Sennosides/Docusate Sodium [Senna Plus] 1 each PO DAILY PRN #30 tablet PRN Reason: Constipation Home Medications: Atorvastatin Calcium [Lipitor] 20 mg PO HS 10/12/17 [History] Lisinopril-HCTZ 20-12.5 [Prinzide 20-12.5] 1 tab PO DAILY 10/12/17 [History] Metformin HCl [Glucophage] 1,000 mg PO BID 10/12/17 [History] Norgestimate-Ethinyl Estradiol [Sprintec 28 Day Tablet] 1 tab PO DAILY 10/12/17 [History] Ferrous Sulfate [Iron] 325 mg PO TID #90 tablet 10/14/17 [Rx] Omeprazole [PriLOSEC] 20 mg PO DAILY #30 cap 10/14/17 [Rx] Sennosides/Docusate Sodium [Senna Plus] 1 each PO DAILY PRN #30 tablet 10/14/17 [Rx] Allergies/Adverse Reactions: 3 Allergy/AdvReac Type Severity Reaction Status Date / Time No Known Allergies Allergy Verified 10/12/17 09:46 Date of admission: 10/12/17 02:44 Primary care physician: Jimmy Vargas CNP - Constitutional Vitals: Temp Pulse Resp BP Pulse Ox 98.4 F 92 14 131/83 97 10/14/17 07:23 10/14/17 07:56 10/14/17 07:56 10/14/17 07:23 10/14/17 07:56 General appearance: Present: A&O X 3, no acute distress, obese, answers questions appropriately - Head Head exam: Present: atraumatic, normal inspection - Neck Neck exam general surgery: Present: supple - Respiratory Respiratory exam: Present: decreased breath sounds. Absent: rales, respiratory distress, rhonchi, wheezes - Cardiovascular Cardiovascular exam: Present: RRR, +S1, +S2. Absent: tachycardia - GI/Abdominal GI/Abdominal exam: Present: normal bowel sounds, soft. Absent: rebound, rigid, tenderness - Extremities Exam Extremities exam: Absent: calf tenderness, pedal edema, tenderness - Back Exam Back exam: Absent: CVA tenderness (L), CVA tenderness (R) - Neurological Exam Neurological exam: Present: alert, oriented X3 - Psychiatric Psychiatric exam: Present: normal affect, normal mood - Patient Status Disposition: Home, Self-Care Condition: Good - Discharge Instructions Follow Up With: Jimmy Vargas CNP [Primary Care Provider] - Rogerio Jj MD [Partnered Physician] - - Diet and Activity Diet: diabetic diet, low salt diet - VTE Reasons for not Prescribing Prophylaxis: Medical contraindication Documentation of Mechanical Device: Intermittent pneumatic compression device
[2017-10-14] MEDS: Pantoprazole 40 MG VIAL IVP SCH (10:31)
[2017-10-14] MEDS: Insulin LISPRO 300 UNITS/3 ML VIAL SQ SCH ×2 (10:32→12:53)
[2017-10-14 11:19] VITALS: BP 162/102
[2017-10-14] MEDS ORDERED: FLUARIX QUAD 2017-18 36MOS UP/PF 0.5 ML SYRINGE IM ONE (11:29)
[2017-10-16 14:27] LABS: Immunoglobulin A (CELIAC) 376 mg/dL (68-408)
[2017-10-17 08:33] LABS: Tissue Transglutaminase IgA 1 U/mL (0-3)
== END 2017-10-14 14:05 | disposition home or self-care (01) | DRG 378 ==
LOC: EMEROO 17:53 → 2ANU 17:53
PROVIDERS: ADMIT Internal Medicine Cardiovascular Disease; ATTEND Family Medicine
PROC: ENDOEBX (2017-10-12 13:00)

== ENCOUNTER 2018-04-23 20:57 | Inpatient (IN) ==
[2018-04-23] MEDS ORDERED: 0.9 % Sodium Chloride 1,000 ML IVC ONE (21:11)
--- NOTE | 2018-04-23 21:19 | Emergency Department Note ---
Disposition Clinical Impression: Rectal bleeding Disposition: Still a Patient General Adult HPI - General Chief complaint: ED GI Bleed Stated complaint: GI Bleed for 3 weeks Time Seen by Provider: 04/23/18 21:05 - History of Present Illness HPI Narrative: ED attending attestation note: I examined this patient and my medical decision-making was reviewed with the emergency medicine resident Reggie Lopez. I agree with the documented findings , disposition and treatment plan as described except to the extent set forth below. Briefly: 27-year-old female history of recurrent hemorrhoidal bleeding has really seen gastric neurology at [facility]. Patient has been having for 3 weeks intermittent painless but red blood per rectum. She states she feels a little weak and lightheaded but denies shortness breath or chest pain. She is afebrile with stable vital signs shows normal skin turgor and skin color. Patient's abdomen is surgically benign she will get screening labs IV fluid & external rectal examination. Disposition pending. Pain Scale: 0 - Related Data Home Medications Medication Instructions Recorded Confirmed Atorvastatin Calcium [Lipitor] 20 mg PO HS 10/12/17 10/12/17 Lisinopril-HCTZ 20-12.5 [Prinzide 1 tab PO DAILY 10/12/17 10/12/17 20-12.5] Metformin HCl [Glucophage] 1,000 mg PO BID 10/12/17 10/12/17 Norgestimate-Ethinyl Estradiol 1 tab PO DAILY 10/12/17 10/12/17 [Sprintec 28 Day Tablet] Previous Rx's Medication Instructions Recorded Ferrous Sulfate [Iron] 325 mg PO TID #90 tablet 10/14/17 Omeprazole [PriLOSEC] 20 mg PO DAILY #30 cap 10/14/17 Sennosides/Docusate Sodium [Senna 1 each PO DAILY PRN #30 tablet 10/14/17 Plus] Allergies Allergy/AdvReac Type Severity Reaction Status Date / Time No Known Allergies Allergy Verified 04/23/18 21:04 Past Medical History - Past Medical History Medical history: Reports: diabetes, hyperlipidemia, hypertension Surgical history: Reports: no surgical history Psychiatric history: Reports: no psych history - Social History Smoking Status: Never smoker Alcohol use: Reports: none Drug use: Reports: none Physical Exam - General General appearance: alert, in no apparent distress Course Vital Signs Temperature 98.4 F 04/23/18 21:00 Pulse Rate 133 04/23/18 21:00 Respiratory Rate 18 04/23/18 21:00 Blood Pressure 127/78 04/23/18 21:00 O2 Sat by Pulse Oximetry 99 04/23/18 21:00 Temperature 98.4 F 04/23/18 21:00 Pulse Rate 133 04/23/18 21:00 Respiratory Rate 18 04/23/18 21:00 Blood Pressure 127/78 04/23/18 21:00 O2 Sat by Pulse Oximetry 99 04/23/18 21:00 Oxygen Delivery Oxygen Delivery Room Air
[2018-04-23 21:35] LABS: Basophils % 0.4 %; Eosinophils % 2.1 %
--- NOTE | 2018-04-23 21:36 | Emergency Department Note ---
Disposition Clinical Impression: Rectal bleeding Disposition: Admitted As Inpatient Forms: ED Satisfaction Letter Time of Disposition: 23:15 GI Bleed HPI - General Chief complaint: ED GI Bleed Stated complaint: GI Bleed for 3 weeks Time Seen by Provider: 04/23/18 21:05 Source: patient Mode of arrival: ambulatory Limitations: no limitations Nursing Notes Reviewed: Yes Vital Signs Reviewed: Yes - History of Present Illness HPI Narrative: 27-year-old female presents to the emergency department with rectal bleeding. Patient has had chronic rectal bleeding for the past year she is followed by GI and saw Dr. Jj he did a colonoscopy and large internal hemorrhoids were seen. There is no other pathology seen. Patient was told by if she did have a very large bowel movements and started to feel weak to emergency department of her hemoglobin checked. Patient states this today she felt like she was urinating blood out of her rectum. She does bright red blood all throughout the toilet bowl. She does not within the stools just around it. Says this feels exactly like when she had the internal hemorrhoids. She is not complaining of any pain with this. Says she has felt lightheaded and a little weak otherwise. No nausea or vomiting or fevers. No other complaints - Related Data Home Medications Medication Instructions Recorded Confirmed Atorvastatin Calcium [Lipitor] 20 mg PO HS 10/12/17 10/12/17 Lisinopril-HCTZ 20-12.5 [Prinzide 1 tab PO DAILY 10/12/17 10/12/17 20-12.5] Metformin HCl [Glucophage] 1,000 mg PO BID 10/12/17 10/12/17 Norgestimate-Ethinyl Estradiol 1 tab PO DAILY 10/12/17 10/12/17 [Sprintec 28 Day Tablet] Ferrous Sulfate [Iron] 325 mg PO BID 04/23/18 04/23/18 Previous Rx's Medication Instructions Recorded Omeprazole [PriLOSEC] 20 mg PO DAILY #30 cap 10/14/17 Allergies Allergy/AdvReac Type Severity Reaction Status Date / Time No Known Allergies Allergy Verified 04/23/18 21:04 Review of Systems: As Per HPI Limitations: ROS unobtainable due to patients medical condition Constitutional: Denies: fever, chills, weakness, weight change Eyes: Denies: eye pain, eye discharge, vision change ENT ED: Denies: ear pain, throat pain, dental pain, hearing loss, epistaxis, congestion, dysphagia Cardiovascular: Denies: chest pain, palpitations, dyspnea on exertion, edema, syncope Respiratory: Denies: cough, dyspnea, wheezes, hemoptysis, stridor Gastrointestinal: Reports: hematochezia. Denies: abdominal pain, nausea, vomiting, diarrhea, constipation, hematemesis, melena Genitourinary: Denies: dysuria, frequency, hematuria, discharge Musculoskeletal: Denies: back pain, neck pain, arthralgia, myalgia Integumentary: Denies: rash, abrasion, lesions Neurological: Denies: headache, weakness, numbness, paresthesias, confusion, abnormal gait, vertigo Psychiatric: Denies: anxiety, depression, suicidal thoughts, homicidal thoughts , auditory hallucinations, visual hallucinations Endocrine: Denies: fatigue Hematological/Lymphatic: Denies: easy bleeding, easy bruising Allergic/Immunologic: Denies: facial swelling, urticaria Past Medical History - Past Medical History Attestation: Yes The following information was validated with the patient. Source: patient Medical history: Reports: diabetes, hyperlipidemia, hypertension Surgical history: Reports: no surgical history Psychiatric history: Reports: no psych history - Social History Smoking Status: Never smoker Alcohol use: Reports: none Drug use: Reports: none Physical Exam - General Limitations: no limitations General appearance: alert, in no apparent distress - Head Head exam: atraumatic, normocephalic, normal inspection - Eye Eye exam: Present: normal appearance, PERRL, EOMI - ENT ENT exam: normal exam, normal oropharynx, mucous membranes moist - Neck Neck exam: Present: normal inspection, full ROM, trachea midline - Chest Chest inspection: Present: normal inspection, symmetric chest wall rise - Respiratory Respiratory exam: Present: normal lung sounds bilaterally - Cardiovascular Cardiovascular exam: Present: regular rate, normal rhythm, normal heart sounds - Abdominal Exam Abdominal exam: Present: soft, Non-Tender, normal bowel sounds. Absent: tenderness, distention, guarding, rebound, rigidity - Rectal Exam Manager Analytical present during exam: Yes Rectal exam: Present: normal inspection, normal rectal tone. Absent: fecal impaction, hemorrhoids, mass, tenderness - Extremities Exam Extremities exam: Present: normal inspection, full ROM. Absent: tenderness, pedal edema - Expanded Lower Extremity Exam Hip/Pelvis exam: Present: normal inspection, full ROM Neurovascular/Tendon exam: Absent: motor deficit, sensory deficit, tendon deficit - Back Exam Back exam: Present: normal inspection, full ROM. Absent: tenderness - Neurological Exam Neurological exam: Present: alert, oriented X3 - Skin Skin exam: Present: warm, dry, intact, normal color Course Course Narrative: This is a chronic rectal bleeding for this patient. We will distract labs including CBC BMP urinalysis test we will type and screen the patient and do Hemoccult. We will give patient IV and IV fluids. This patient pending results. May need transfusion with patient about imaging there is no need for imaging at this time. The patient does agree. Vital Signs Temperature 98.4 F 04/23/18 21:00 Pulse Rate 133 04/23/18 21:00 Respiratory Rate 18 04/23/18 21:00 Blood Pressure 127/78 04/23/18 21:00 O2 Sat by Pulse Oximetry 99 04/23/18 21:00 Temperature 99.1 F 04/23/18 23:06 Pulse Rate 123 04/23/18 23:06 Respiratory Rate 20 04/23/18 23:06 Blood Pressure 131/79 04/23/18 23:06 O2 Sat by Pulse Oximetry 99 04/23/18 21:00 Oxygen Delivery Oxygen Delivery Room Air GI Bleed - MDM Narrative Medical decision making narrative: 27-year-old female presented to the emergency department with rectal bleeding. On exam there were no noticeable hemorrhoids but she says they are normally internal hemorrhoids. Patient's hemoglobin was below 8 patient is symptomatic so she does warrant a 2 unit transfusion of blood. Patient is okay with this plan. I spoke with the hospitalist Dr. Pereira who agreed to admit the patient to their service. Patient is admitted in stable condition. We did give patient one unit of IV fluids this did help with her symptoms. Patient is admitted in stable condition - Medical Records Medical records reviewed: Yes I reviewed the patient's medical records. - Lab Data Lab results reviewed: Yes I reviewed the patient's lab results. Result diagrams: 04/23/18 21:08 04/23/18 21:08 Lab Results 04/23/18 04/23/18 04/23/18 Range/Units 21:08 21:08 21:19 WBC 14.1 H (4.3-11.1) K/mcL RBC 3.36 L (3.82-4.97) M/mcL Hgb 7.2 L (11.5-15.4) g/dL Hct 24.6 L (35.3-44.9) % MCV 73.2 L (83.0-100.0) fL MCH 21.4 L (28.0-33.3) pg MCHC 29.3 L (31.6-35.5) g/dL RDW 17.9 H (11.5-14.5) % Plt Count 382 (140-400) K/mcL MPV 8.6 L (9.4-12.4) fL Immature Gran % 1.1 (0-4) % Seg Neutrophils % 71.9 % Lymphocytes % 19.9 % Monocytes % 4.6 % Eosinophils % 2.1 % Basophils % 0.4 % Neutrophils # 10.1 H (1.6-8.9) K/mcL Lymphocytes # 2.8 (0.6-4.6) K/mcL Monocytes # 0.7 (0.0-1.3) K/mcL Eosinophils # 0.3 (0.0-0.6) K/mcL Basophils # 0.1 (0.0-0.2) K/mcL Nucleated RBCs/100 WBC 0.2 H (0) /100 WBC Platelet Estimate Normal (Normal) Polychromasia 1+ A (Not Present) Hypochromasia Present A (Not Present) Anisocytosis 1+ A (Not Present) Microcytosis Present A (Not Present) Macrocytosis Present A (Not Present) Stomatocytes 1+ A (Not Present) Sodium 131 L (136-145) mEq/L Potassium 4.9 (3.5-5.1) mEq/L Chloride 98 (98-107) mEq/L Carbon Dioxide 22 L (23-29) mEq/L BUN 17 (6-20) mg/dL Creatinine 0.73 (0.60-1.20) mg/dL Est GFR ( Amer) > 60 (> 60) Est GFR (Non-Af Amer) > 60 (> 60) BUN/Creatinine Ratio 23 (6-26) Glucose 244 H (70-105) mg/dL Calculated Osmolality 282 (280-300) Calcium 9.1 (8.6-10.3) mg/dL Urine Test (Negative) Stool Occult Bld Scrn (Negative) Blood Type B POSITIVE Antibody Screen NEGATIVE Crossmatch See Detail 04/23/18 04/23/18 Range/Units 21:40 22:43 WBC (4.3-11.1) K/mcL RBC (3.82-4.97) M/mcL Hgb (11.5-15.4) g/dL Hct (35.3-44.9) % MCV (83.0-100.0) fL MCH (28.0-33.3) pg MCHC (31.6-35.5) g/dL RDW (11.5-14.5) % Plt Count (140-400) K/mcL MPV (9.4-12.4) fL Immature Gran % (0-4) % Seg Neutrophils % % Lymphocytes % % Monocytes % % Eosinophils % % Basophils % % Neutrophils # (1.6-8.9) K/mcL Lymphocytes # (0.6-4.6) K/mcL Monocytes # (0.0-1.3) K/mcL Eosinophils # (0.0-0.6) K/mcL Basophils # (0.0-0.2) K/mcL Nucleated RBCs/100 WBC (0) /100 WBC Platelet Estimate (Normal) Polychromasia (Not Present) Hypochromasia (Not Present) Anisocytosis (Not Present) Microcytosis (Not Present) Macrocytosis (Not Present) Stomatocytes (Not Present) Sodium (136-145) mEq/L Potassium (3.5-5.1) mEq/L Chloride (98-107) mEq/L Carbon Dioxide (23-29) mEq/L BUN (6-20) mg/dL Creatinine (0.60-1.20) mg/dL Est GFR ( Amer) (> 60) Est GFR (Non-Af Amer) (> 60) BUN/Creatinine Ratio (6-26) Glucose (70-105) mg/dL Calculated Osmolality (280-300) Calcium (8.6-10.3) mg/dL Urine Test Negative (Negative) Stool Occult Bld Scrn Positive A (Negative) Blood Type Antibody Screen Crossmatch - Radiology Data Radiology results reviewed: Yes I reviewed the patient's radiology results. - EKG Data EKG attestation: Yes I reviewed and interpreted this EKG. EKG results narrative: EKG done at 2124 review myself and attending shows sinus tachycardia at a rate of 126, ND 135, QRS 83, QTC [address] changes no acute T-wave changes no other signs of ischemia. No heartstring, hypertrophy, heart block. No WPW/ Brugada/HOCM. No old EKG compare with
[2018-04-23 21:37] LABS: Basophils # 0.1 K/mcL (0.0-0.2); Eosinophils # 0.3 K/mcL (0.0-0.6); Hematocrit 24.6 % (35.3-44.9); Hemoglobin 7.2 g/dL (11.5-15.4); Immature Granulocytes % 1.1 % (0-4); Lymphocytes # 2.8 K/mcL (0.6-4.6); Lymphocytes % 19.9 %; Mean Corpuscular HGB Conc 29.3 g/dL (31.6-35.5); Mean Corpuscular Hemoglobin 21.4 pg (28.0-33.3); Mean Corpuscular Volume 73.2 fL (83.0-100.0); Mean Platelet Volume 8.6 fL (9.4-12.4); Monocytes # 0.7 K/mcL (0.0-1.3); Monocytes % 4.6 %; Nucleated Red Blood Cells 0.2 /100 WBC (0); Platelet Count 382 K/mcL (140-400); Red Blood Count 3.36 M/mcL (3.82-4.97); Red Cell Distribution Width 17.9 % (11.5-14.5); Segmented Neutrophils % 71.9 %
[2018-04-23 21:54] LABS: Neutrophils # 10.1 K/mcL (1.6-8.9)
[2018-04-23 22:10] LABS: Anisocytosis 1+ (Not Present); Hypochromasia Present (Not Present); Microcytosis Present (Not Present); Polychromasia 1+ (Not Present)
[2018-04-23 22:11] LABS: Platelet Estimate Normal (Normal); Stomatocytes 1+ (Not Present)
[2018-04-23 22:12] LABS: Macrocytosis Present (Not Present)
[2018-04-23 22:13] LABS: BUN/Creatinine Ratio 23 (6-26); Blood Urea Nitrogen 17 mg/dL (6-20); Calcium 9.1 mg/dL (8.6-10.3); Carbon Dioxide 22 mEq/L (23-29); Chloride 98 mEq/L (98-107); Glucose 244 mg/dL (70-105); Osmolality,Calculated 282 (280-300); Potassium 4.9 mEq/L (3.5-5.1); Sodium 131 mEq/L (136-145); eGFR For Non-African Americans > 60 (> 60)
[2018-04-23] MEDS ORDERED: 0.9 % Sodium Chloride 500 ML ONE (22:47)
[2018-04-23] MEDS ORDERED: Acetaminophen 325 MG TABLET PO PRN (23:39)
[2018-04-23] MEDS ORDERED: *HR* Dextrose 50 % in Water (Syg) 50 ML SYRINGE IVP PRN (23:39)
[2018-04-23] MEDS ORDERED: Naloxone 0.4 MG/ML INJ IVP PRN (23:39)
[2018-04-23] MEDS ORDERED: Dextrose Gel 15 GM/37.5 ML TUBE PO PRN ×2 (23:39)
[2018-04-23] MEDS ORDERED: D5% in Water 1,000 ML IVC PRN (23:39)
--- NOTE | 2018-04-23 23:56 | Internal Med History&Physical ---
Date of Encounter: 04/23/18 Time of Encounter: 23:15 Internal Medicine - H&P: HPI Chief complaint: blood per rectum Admitted From: Emergency Dept Plans for Post Hospital Care: Home History of present illness: Ms. Loo is a 27 year old female who presents to the ER today complaining of bloody bowel movements, weakness, lightheadedness, and palpitations. Workup in ER revealed patient to have an acute blood loss anemia with hemoglobin 7.2. She was also tachycardic and pale in complexion. She was therefore started on PRBC transfusion and admitted to the hospitalist service. Upon my assessment of the patient in ER, patient appears quite pale, weak, and remains tachycardic. Blood pressure is preserved. Her nailbeds are pale with no cap refill. I reviewed her old endoscopy records in September of this year detailing normal colonoscopy and essentially normal upper endoscopy. She and her informed me that she just had upper endoscopy 3 days ago and anoscopy. Those records are not available for review, but per her verbal report , she has normal upper endoscopy and internal hemorrhoids on anoscopy. She has been having bloody bowel movements off and on for several months now. She denies any abdominal pain or cramping. She has had no fevers or chills. She denies any food intolerance. She denies any hematuria or dysuria. She denies any heavy or abnormal menstrual bleeding. She states her menstrual cycles are normal and regular. She is not currently menstruating. She states her bowel movements today were all blood with no stool. She had 4 bloody bowel movements at home today with subsequent lightheadedness and dizziness thereafter. She denies any hematemesis or coffee-ground emesis. Appetite and oral intake have not changed recently. She denies any exotic food intake, undercooked meats, or any recent foreign travel. Past Med Surg Social Fam HX - Past Medical History Attestation: Yes The following information was validated with the patient. Source: patient, old records reviewed, obtained from family Medical history: diabetes, hyperlipidemia, hypertension Additional medical history: IBS, PCOS, iron deficiency anemia Psychiatric history: no psych history - Past Surgical History Surgical History: no surgical history - Social History Smoking Status: Never smoker Alcohol use: none Drug use: none Current living situation: Home, With Family Activity Level: Independent ambulation Recent Out of Country Travel Within the Last 8 Weeks: No - Family History Mother Hx Family Cancer: Yes (Thyroid) - Additional Family History Additional family history: no FH of Crohn's, Ulcerative Colitis Internal Medicine - H&P: Meds Atorvastatin Calcium [Lipitor] 20 mg PO HS 10/12/17 [History] Lisinopril-HCTZ 20-12.5 [Prinzide 20-12.5] 1 tab PO DAILY 10/12/17 [History] Metformin HCl [Glucophage] 1,000 mg PO BID 10/12/17 [History] Norgestimate-Ethinyl Estradiol [Sprintec 28 Day Tablet] 1 tab PO DAILY 10/12/17 [History] Omeprazole [PriLOSEC] 20 mg PO DAILY #30 cap 10/14/17 [Rx] Ferrous Sulfate [Iron] 325 mg PO BID 04/23/18 [History] 3 Allergy/AdvReac Type Severity Reaction Status Date / Time No Known Allergies Allergy Verified 04/23/18 21:04 - Constitutional Constitutional: fatigue, weakness, no chills, no fever(s), no night sweats - EENT Eyes: no blurry vision, no change in vision Ears: no ear pain, no tinnitus Nose, mouth and throat: no nasal congestion, no sinus pressure, no sore throat - Cardiovascular Cardiovascular ROS IM: dyspnea on exertion, lightheadedness, palpitations, no chest pain, no diaphoresis, no dyspnea, no syncope - Respiratory Respiratory: no cough, no hemoptysis, no chest congestion, no excessive phlegm production, no change in phlegm color - Gastrointestinal Gastrointestinal: hematochezia, nausea, no abdominal pain, no coffee ground emesis, no cramping, no heartburn, no hematemesis, no melena, no vomiting - Genitourinary Genitourinary: no dysuria, no flank pain, no hematuria Menstruation: period normal - Musculoskeletal Musculoskeletal ROS IM: no arthralgias, no back pain - Integumentary Integumentary IM: no rash, no jaundice - Neurological Neurological ROS: dizziness, no focal weakness, no frequent falls, no headache(s ) - Psychiatric Psychiatric: no anxiety, no depression - Endocrine Endocrine IM: no cold intolerance, no heat intolerance, no polydipsia, no polyphagia, no polyuria - Allergic/Immunologic Allergic/Immunologic: no GI upset with certain foods - Constitutional Vitals: Temp Pulse Resp BP Pulse Ox 99.1 F 123 20 131/79 98 04/23/18 23:06 04/23/18 23:06 04/23/18 23:06 04/23/18 23:06 04/23/18 22:51 General appearance: Present: cooperative, A&O X 3, pleasant, answers questions appropriately Exam: patient very pale, tachycardic, but BP preserved; pale conjunctiva and nailbeds - Head Head exam: Present: atraumatic, normal inspection - Eye Eye exam: Present: EOMI, PERRL. Absent: scleral icterus, conjuntiva pink (pale) Pupils: Present: normal accommodation - ENT ENT exam: Present: mucous membranes dry, normal exam, normal oropharynx - Neck Neck exam general surgery: Present: full ROM, supple. Absent: tenderness, nuchal rigidity, thyromegaly - Respiratory Respiratory exam: Present: CTAB. Absent: chest wall tenderness, rales, respiratory distress, rhonchi, wheezes - Cardiovascular Cardiovascular exam: Present: +S1, +S2, tachycardia (HR 120-130's). Absent: diastolic murmur, systolic murmur - GI/Abdominal GI/Abdominal exam: Present: normal bowel sounds, soft. Absent: guarding, hepatomegaly, mass, rebound, splenomegaly, tenderness - Extremities Exam Extremities exam: Present: full ROM, warm, radial pulses palpable and symmetrical. Absent: calf tenderness, normal capillary refill (pale nailbeds), pedal edema, tenderness - Back Exam Back exam: Absent: CVA tenderness (L), CVA tenderness (R) - Neurological Exam Neurological exam: Present: alert, CN II-XII intact, oriented X3, no focal deficits, strengths equal and symetr throughout - Psychiatric Psychiatric exam: Present: normal affect, normal mood - Skin Skin exam: Present: dry, pallor, warm. Absent: petechiae, rash Internal Med - H&P Results - Labs CBC & Chem 7: 04/23/18 21:08 04/23/18 21:08 - Assessment and plan (1) Acute blood loss anemia Current Visit: Yes Status: Acute Assessment and plan: 1. Will transfuse PRBC and monitor H/H frequently. 2. I asked ER staff to place a second IV. 3. If she develops hemodynamic instability, will place CVC and rapidly transfuse blood products and move to ICU. (2) GI bleeding Current Visit: Yes Status: Acute Assessment and plan: 1. Patient had recent endoscopy just 3 days ago per patient report -- records not available. 2. Will place on Protonix drip and consult GI to see patient. 3. I do not believe this is a hemorrhoidal bleed given her volume of blood loss , pallor, and tachycardia. I suspect AVM/angiodysplasia which could be easily missed on endoscopy or some small bowel bleed not easily accessed by upper/ lower endoscopy. 4. May need nuclear medicine bleeding scan if she has more LGI bleeding. 5. May also benefit from capsule endoscopy. Qualifiers: GI bleed type/associated pathology: unspecified gastrointestinal hemorrhage type Qualified Code(s): K92.2 - Gastrointestinal hemorrhage, unspecified (3) DM2 (diabetes mellitus, type 2) Current Visit: Yes Status: Chronic Assessment and plan: 1. Will hold oral meds. 2. Will monitor glucose and place on SSI. 3. Monitor and adjust insulin dosing as needed. Qualifiers: Diabetes mellitus ferry terminal agent insulin use: without jail use Diabetes mellitus complication status: without complication Qualified Code(s): E11.9 - Type 2 diabetes mellitus without complications (4) Leukocytosis Current Visit: Yes Status: Acute Assessment and plan: 1. Suspect due to demargination and less likely infectious etiology. 2. Nonetheless, will order blood cultures and place on IV Flagyl and Cipro to cover GI cathi. 3. Will order GI stool panel to rule out infectious etiology. Qualifiers: Leukocytosis type: unspecified Qualified Code(s): D72.829 - Elevated white blood cell count, unspecified (5) DVT prophylaxis Current Visit: Yes Status: Acute Assessment and plan: 1. EPCD's.
[2018-04-24] MEDS: Pantoprazole 40 MG in 0.9 % Sodium Chloride Mini Bag 100 ML IVC SCH ×5 (00:17→19:53)
[2018-04-24 00:28] LABS: Prothrombin Time 11.1 Seconds (9.4-12.1)
[2018-04-24 00:30] LABS: Activated Partial Thrombo Time 23.5 Seconds (26.0-36.0)
[2018-04-24] MEDS: Insulin LISPRO 300 UNITS/3 ML VIAL SQ SCH ×5 (01:04→20:48)
[2018-04-24] MEDS: MetroNIDAZOLE 500 MG/100 ML 500 MG/100 ML BAG IVPB SCH ×3 (01:05→17:01)
[2018-04-24 05:18] LABS: Basophils # 0.1 K/mcL (0.0-0.2); Basophils % 0.5 %; Eosinophils # 0.3 K/mcL (0.0-0.6); Eosinophils % 2.6 %; Hematocrit 25.3 % (35.3-44.9); Hemoglobin 7.8 g/dL (11.5-15.4); Lymphocytes # 2.7 K/mcL (0.6-4.6); Lymphocytes % 25.1 %; Mean Corpuscular HGB Conc 30.8 g/dL (31.6-35.5); Mean Corpuscular Hemoglobin 23.4 pg (28.0-33.3); Mean Corpuscular Volume 75.7 fL (83.0-100.0); Mean Platelet Volume 8.6 fL (9.4-12.4); Monocytes # 0.6 K/mcL (0.0-1.3); Monocytes % 5.2 %; Nucleated Red Blood Cells 0.3 /100 WBC (0); Platelet Count 253 K/mcL (140-400); Red Blood Count 3.34 M/mcL (3.82-4.97); Segmented Neutrophils % 65.6 %
[2018-04-24 05:37] LABS: Alanine Aminotransferase 13 Units/L (7-52); Albumin 3.1 g/dL (3.5-5.7); Alkaline Phosphatase 52 Units/L (34-104); Aspartate Amino Transferase 13 Units/L (13-39); BUN/Creatinine Ratio 25 (6-26); Bilirubin,Total 0.4 mg/dL (0.3-1.0); Blood Urea Nitrogen 14 mg/dL (6-20); Calcium 8.2 mg/dL (8.6-10.3); Carbon Dioxide 21 mEq/L (23-29); Chloride 102 mEq/L (98-107); Globulin 3.1 g/dL (2.4-3.5); Glucose 163 mg/dL (70-105); Magnesium 1.8 mg/dL (1.6-2.6); Osmolality,Calculated 282 (280-300); Potassium 3.9 mEq/L (3.5-5.1); Sodium 134 mEq/L (136-145); Total Protein 6.2 g/dL (6.4-8.9); eGFR For Non-African Americans > 60 (> 60)
[2018-04-24] MEDS ORDERED: 0.9 % Sodium Chloride 250 ML ONE (06:24)
[2018-04-24 06:53] LABS: C.difficile Toxin A/B by PCR Not detected (Not detect); Campylobacter by PCR Not detected (Not detect); Enteroaggregative E.coli(EAEC) Not detected (Not detect); Enteropathogenic E.coli(EPEC) Not detected (Not detect); Enterotoxigenic E.coli (ETEC) Not detected (Not detect); Plesiomonas shigelloides PCR Not detected (Not detect); Salmonella PCR Not detected (Not detect); Shigalike tox-prod E coli STEC Not detected (Not detect); Vibrio PCR Not detected (Not detect); Vibrio cholerae PCR Not detected (Not detect); Yersinia enterocolitica PCR Not detected (Not detect)
[2018-04-24 06:54] LABS: Adenovirus F 40/41 PCR Not detected (Not detect); Astrovirus PCR Not detected (Not detect); Cryptosporidium by PCR Not detected (Not detect); Cyclospora cayetanensis PCR Not detected (Not detect); E. coli O157 by PCR Not detected (Not detect); Entamoeba histolytica PCR Not detected (Not detect); Giardia lamblia PCR Not detected (Not detect); Norovirus GI/GII PCR Not detected (Not detect); Rotavirus A PCR Not detected (Not detect); Sapovirus PCR Not detected (Not detect); Shig/EnteroinvasiveE coli EIEC Not detected (Not detect)
--- NOTE | 2018-04-24 10:25 | Internal Med Progress Note ---
Hospitalist Progress Note - Encounter Date of Encounter: 04/24/18 Time of Encounter: 10:25 - Subjective Interval History: Seen and evaluated at the bedside. She has no new complaints. Witnessed active GI bleed overnight. Receiving her fourth unit of red blood cells during evaluation. Currently asymptomatic. GI evaluation is pending. - Exam Vitals: Temp Pulse Resp BP Pulse Ox 98.5 F 98 16 138/90 98 04/24/18 09:55 04/24/18 09:55 04/24/18 09:55 04/24/18 09:55 04/24/18 09:55 Exam: Gen.: Vital signs are stable, patient is sitting up in bed in no form of distress. HEENT: Moist oral mucosa, not cyanotic, sclerae is anicteric, conjunctiva is pink. Neuro: Alert and awake and oriented X3 ,speech is normal, no facial paralysis, no focal weakness. Chest: No bruising, no chest wall tenderness, equal chest movement bilaterally. Respiratory: CTAB Heart: S1, S2, regular rate and rhythm at this time. No murmurs. Abdomen:soft, non-tender, no palpably enlarged organs, bowel sounds present in all quadrants. Extremities: no pedal edema - Assessment and Plan (1) GI bleeding Current Visit: Yes Status: Acute Assessment and Plan: s/p push enteroscopy and sigmoidoscopy on 04/20 with evidence of hemorrhoids Witnessed LGIB according to RN Continue RBC transfusion Monitor Hb q12h GI eval, keep on clear liquids till GI eval (2) DM2 (diabetes mellitus, type 2) Current Visit: Yes Status: Chronic Assessment and Plan: FS ACHS SSI On clear liquid diet at this time (3) Acute blood loss anemia Current Visit: Yes Status: Acute Assessment and Plan: likely due to GIB Continue RBC transgusion-4 units Monitor Hb q8-12h Currently hemodynamically stable (4) DVT prophylaxis Current Visit: Yes Status: Acute Assessment and Plan: SCDs (5) Leukocytosis Current Visit: Yes Status: Acute Assessment and Plan: Reactionary, due to GIB, improving, continue to monitor On Cipro and Flagyl by admitting team GI panel negative, may discontinued after intervention - Time Spent with Patient Total time spent is greater than 50% in coordination of care (as documented) at patient's floor/unit and/or counseling patient: Plan of Care Discussed with: patient Internal Medicine: Result - Labs CBC & Chem 7: 04/24/18 05:01 04/24/18 05:01 Labs: Short CBC 04/24/18 Range/Units 05:01 WBC 10.7 (4.3-11.1) K/mcL Hgb 7.8 L (11.5-15.4) g/dL Hct 25.3 L (35.3-44.9) % Plt Count 253 (140-400) K/mcL Neutrophils # 7.0 (1.6-8.9) K/mcL BMP 04/24/18 05:01 Sodium 134 L Potassium 3.9 Chloride 102 Carbon Dioxide 21 L BUN 14 Creatinine 0.57 L Glucose 163 H Calcium 8.2 L Liver Function 04/24/18 Range/Units 05:01 Total Bilirubin 0.4 (0.3-1.0) mg/dL AST 13 (13-39) Units/L ALT 13 (7-52) Units/L Alkaline Phosphatase 52 (34-104) Units/L Albumin 3.1 L (3.5-5.7) g/dL - ABG Interpretation ABG results: PT/INR, D-dimer PT 11.1 Seconds (9.4-12.1) 04/23/18 21:19 - VTE Documentation of Mechanical Device: Intermittent pneumatic compression device Consult Discharge Plan - Plan Referrals: Reanta Campbell MD [Primary Care Provider] - (1) GI bleeding Qualifiers: GI bleed type/associated pathology: unspecified gastrointestinal hemorrhage type Qualified Code(s): K92.2 - Gastrointestinal hemorrhage, unspecified (2) DM2 (diabetes mellitus, type 2) Qualifiers: Diabetes mellitus jail insulin use: without jail use Diabetes mellitus complication status: without complication Qualified Code(s): E11.9 - Type 2 diabetes mellitus without complications (5) Leukocytosis Qualifiers: Leukocytosis type: unspecified Qualified Code(s): D72.829 - Elevated white blood cell count, unspecified
--- NOTE | 2018-04-24 11:30 | Gastroenterology Consult Note ---
<Frandy Brink - Last Filed: 04/24/18 11:27> Date of Encounter: 04/24/18 Time of Encounter: 10:20 - Assessment and plan (1) GI bleeding Current Visit: Yes Status: Acute Assessment and plan: Push enteroscopy completed 04/[address] Jj. Patient having BRBPR for "several months". Plan for colonoscopy tomorrow. Clear liquid diet today, no red or purple. NPO at midnight. If unable tolerate NuLytely please use MiraLAX prep. If not clear by 6 AM, give 2 tap water enemas. Qualifiers: GI bleed type/associated pathology: unspecified gastrointestinal hemorrhage type Qualified Code(s): K92.2 - Gastrointestinal hemorrhage, unspecified (2) Anemia Current Visit: No Status: Acute Assessment and plan: Hgb on admission was 7.2 and this AM Hgb 7.8. Continue to monitor CBC and transfuse PRBC as needed. Plan for colonoscopy tomorrow. Qualifiers: Anemia type: iron deficiency Iron deficiency anemia type: unspecified iron deficiency Qualified Code(s): D50.9 - Iron deficiency anemia, unspecified - Time Spent With Patient Total time spent is greater than 50% in coordination of care (as documented) at patient's floor/unit and/or counseling patient: GI History of Present Illness - Data of Consult Patient: known to practice within the last 3 years Consult date: 04/24/18 Requesting Physician: Joao Gamino MD - Consult Narrative Reason for consult: Lower GI bleed History of present illness: Ms. Loo is a 27 year old female with PMHx of DM, HLD, HTN, JOSH who presented to the ED with complaints of bloody bowel movements, weakness, lightneadedness, and palpitations. Hgb on admission was 7.2 and this AM Hgb 7.8. Fecal occult blood test was positive. She has received 2 units PRBC since admission. She has been having bloody bowel movements off and on for several months now. She denies any heavy or abnormal menstrual bleeding. The day of admission she had 4 bloody BMs with lightheadedness and dizziness afterwards. No hematemesis or melena. Procedures: Push Enteroscopy 04/20/2018 Dr. Jj: Pathology showed gastric mucosa with focal chronic inflammation. Colonoscopy 10/13/2017 Dr. Jj: Normal EGD 10/12/2017 Dr. Jj: EGJ with hyperplastic gastric mucosa with severe acute and chronic inflammation . NSAIDs: None Anticoagulation: None Past Med Surg Social Fam HX - Past Medical History Medical history: diabetes, hyperlipidemia, hypertension Additional medical history: IBS, PCOS, iron deficiency anemia Psychiatric history: no psych history - Past Surgical History Surgical History: no surgical history - Social History Smoking Status: Never smoker Alcohol use: none Drug use: none - Family History Mother Hx Family Cancer: Yes (Thyroid) Paternal Grandmother Hx Family Cardiac Disorders: Yes - Gastrointestinal Gastrointestinal: Present: as per HPI - Constitutional Constitutional: as per HPI - EENT Eyes: as per HPI Ears: Present: as per HPI Nose, mouth and throat: Present: as per HPI - Cardiovascular Cardiovascular ROS: Present: as per HPI - Respiratory Respiratory IM: Present: as per HPI - Genitourinary Genitourinary: Absent: change in color, Urinary frequency - Neurological ROS Neurological GI: Present: as per HPI - Hematologic/Lymphatic Hematologic/Lymphatic pediatric: Present: as per HPI - Musculoskeletal Musculoskeletal ROS GI: Present: as per HPI - Integumentary Integumentary GI: Present: as per HPI - Psychiatric ROS Psychiatric GI: Present: as per HPI - Endocrine Endocrine IM: Present: as per HPI - Constitutional Vitals: Temp Pulse Resp BP Pulse Ox 98.3 F 89 16 142/93 98 04/24/18 10:57 04/24/18 10:57 04/24/18 10:57 04/24/18 10:57 04/24/18 10:57 General appearance: Present: cooperative, A&O X 3, no acute distress, answers questions appropriately - Head Head exam: Present: atraumatic, normocephalic - Eye Eye exam: Present: normal appearance, sclera anicteric - ENT ENT exam: Present: mucous membranes moist - Neck Neck exam general surgery: Present: normal inspection, trachea midline - Respiratory Respiratory exam: Present: CTAB. Absent: rales, rhonchi, wheezes - Cardiovascular Cardiovascular exam: Present: RRR, +S1, +S2 - GI/Abdominal GI/Abdominal exam: Present: soft, no peritoneal signs. Absent: distended, firm , guarding, tenderness - Rectal Rectal exam: Present: deferred - Extremities Exam Extremities exam: Present: warm - Neurological Exam Neurological exam: Present: no focal deficits - Psychiatric Psychiatric exam: Present: normal affect, normal mood - Skin Skin exam: Present: dry, intact, normal color, warm Results - Labs CBC & Chem 7: 04/24/18 05:01 04/24/18 05:01 Labs: Last Result Calcium 8.2 mg/dL (8.6-10.3) L 04/24/18 05:01 Entire Visit Hgb 7.8 g/dL (11.5-15.4) L 04/24/18 05:01 Hct 25.3 % (35.3-44.9) L 04/24/18 05:01 PT 11.1 Seconds (9.4-12.1) 04/23/18 21:19 Total Bilirubin 0.4 mg/dL (0.3-1.0) 04/24/18 05:01 AST 13 Units/L (13-39) 04/24/18 05:01 ALT 13 Units/L (7-52) 04/24/18 05:01 - ABG ABG results: PT/INR, D-dimer PT 11.1 Seconds (9.4-12.1) 04/23/18 21:19 Consult Discharge Plan - Plan Referrals: Rogerio Jj MD [Partnered Physician] - (SENT WEB REQUEST ON 04-25-18 @ [phone]) Renata Campbell MD [Primary Care Provider] - 04/27/18 4:30 pm Prescriptions: Ciprofloxacin [Cipro] 500 mg PO Q12HR #8 tablet metroNIDAZOLE [Flagyl] 500 mg PO TID #12 tablet <Jayesh West - Last Filed: 04/26/18 12:16> Date of Encounter: 04/24/18 - Time Spent With Patient Total time spent is greater than 50% in coordination of care (as documented) at patient's floor/unit and/or counseling patient: GI History of Present Illness - Data of Consult Requesting Physician: Joao Gamino MD - Consult Narrative History of present illness: Ms. Loo is a 27 year old female - Constitutional Vitals: Temp Pulse Resp BP Pulse Ox 98.4 F 99 18 153/102 99 04/26/18 07:16 04/26/18 07:16 04/26/18 07:16 04/26/18 07:16 04/26/18 07:16 Results - Labs CBC & Chem 7: 04/26/18 04:42 04/26/18 04:42 Labs: Last Result Calcium 8.7 mg/dL (8.6-10.3) 04/26/18 04:42 Entire Visit Hgb 9.4 g/dL (11.5-15.4) L 04/26/18 04:42 Hct 30.1 % (35.3-44.9) L 04/26/18 04:42 PT 11.1 Seconds (9.4-12.1) 04/23/18 21:19 Total Bilirubin 0.4 mg/dL (0.3-1.0) 04/24/18 05:01 AST 13 Units/L (13-39) 04/24/18 05:01 ALT 13 Units/L (7-52) 04/24/18 05:01 - ABG ABG results: PT/INR, D-dimer PT 11.1 Seconds (9.4-12.1) 04/23/18 21:19 - Attending Attestation I have personally performed a face to face evaluation on this patient. I have reviewed and agree with the care plan. History and Exam by me shows:
[2018-04-24 16:52] LABS: Hematocrit 33.1 % (35.3-44.9); Hemoglobin 10.7 g/dL (11.5-15.4)
[2018-04-24] MEDS ORDERED: SODIUM CHLORIDE/NAHCO3/KCL/PEG 4,000 ML SOLN.RECON PO ONE (17:00)
--- NOTE | 2018-04-24 17:13 | Electrocardiograph Report ---
[place] [id number] Test Date: 2018-04-23 Pat Name: Phuong Loo Department: [id number] Room: 2N13 Gender: F [employer] Director: : 1990 Requested By: Jose L Lima Order Number: [id number] Reading MD: Amaris Cage Measurements Intervals [place] Rate: 126 P: 8 UT: 135 QRS: 8 QRSD: 83 T: 56 QT: 302 QTc: 438 Interpretive Statements Sinus tachycardia Electronically Signed On 04-24-2018 17:11:18 EDT by Amaris Cage
--- NOTE | 2018-04-24 17:14 | Electrocardiograph Report ---
[place] [id number] Test Date: 2018-04-24 Pat Name: Phuong Loo Department: 110 Room: 2N13 Gender: F [employer] R[employer] Operator: ESTELA : 1990 Requested By: Grupo Reyes Order Number: [id number] Reading MD: Amaris Cage Measurements Intervals [place] Rate: 111 P: 24 MD: 144 QRS: 13 QRSD: 84 T: 8 QT: 320 QTc: 386 Interpretive Statements SINUS TACHYCARDIA LOW QRS VOLTAGE IN PRECORDIAL LEADS Electronically Signed On 04-24-2018 17:12:32 EDT by Amaris Cage
[2018-04-25] MEDS: MetroNIDAZOLE 500 MG/100 ML 500 MG/100 ML BAG IVPB SCH ×3 (01:45→16:33)
[2018-04-25] MEDS: Pantoprazole 40 MG in 0.9 % Sodium Chloride Mini Bag 100 ML IVC SCH ×3 (01:45→11:35)
[2018-04-25 05:02] LABS: Basophils % 0.3 %; Eosinophils # 0.3 K/mcL (0.0-0.6); Eosinophils % 3.1 %; Hematocrit 28.9 % (35.3-44.9); Hemoglobin 9.3 g/dL (11.5-15.4); Immature Granulocytes % 0.7 % (0-4); Lymphocytes # 1.7 K/mcL (0.6-4.6); Lymphocytes % 19.4 %; Mean Corpuscular HGB Conc 32.2 g/dL (31.6-35.5); Mean Corpuscular Hemoglobin 25.3 pg (28.0-33.3); Mean Corpuscular Volume 78.5 fL (83.0-100.0); Mean Platelet Volume 8.5 fL (9.4-12.4); Monocytes # 0.5 K/mcL (0.0-1.3); Monocytes % 5.5 %; Neutrophils # 6.1 K/mcL (1.6-8.9); Platelet Count 233 K/mcL (140-400); Red Blood Count 3.68 M/mcL (3.82-4.97)
[2018-04-25 05:24] LABS: BUN/Creatinine Ratio 16 (6-26); Blood Urea Nitrogen 9 mg/dL (6-20); Calcium 8.3 mg/dL (8.6-10.3); Carbon Dioxide 20 mEq/L (23-29); Chloride 106 mEq/L (98-107); Glucose 153 mg/dL (70-105); Osmolality,Calculated 284 (280-300); Potassium 3.8 mEq/L (3.5-5.1); Sodium 136 mEq/L (136-145); eGFR For Non-African Americans > 60 (> 60)
[2018-04-25] MEDS: Insulin LISPRO 300 UNITS/3 ML VIAL SQ SCH ×3 (08:00→17:21)
[2018-04-25] MEDS ORDERED: Propofol 500 MG/50 ML INFUS..BTL ONE (12:26)
--- NOTE | 2018-04-25 13:09 | Anesthesia Evaluation PreOp ---
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 RECEIVING AND PROCESSING History: Denies Any Significant HX Other Medical History: Diabetes Type II, GERD, Other (GI bleed per rectum, obesity BMI 40, PCOS, IBS) Anesthesia History: No Prior Anesthetic Complications, Past Anesthesia : No Test: Negative Alcohol Use: none Drug use: none Medications and Allergies Atorvastatin Calcium [Lipitor] 20 mg PO HS 10/12/17 [History] Lisinopril-HCTZ 20-12.5 [Prinzide 20-12.5] 1 tab PO DAILY 10/12/17 [History] Metformin HCl [Glucophage] 1,000 mg PO BID 10/12/17 [History] Norgestimate-Ethinyl Estradiol [Sprintec 28 Day Tablet] 1 tab PO DAILY 10/12/17 [History] Ferrous Sulfate [Iron] 325 mg PO BID 04/23/18 [History] Pantoprazole Sodium [Protonix] 40 mg PO DAILY 04/24/18 [History] Rifaximin [Xifaxan] 550 mg PO TID 04/24/18 [History] 3 Allergy/AdvReac Type Severity Reaction Status Date / Time No Known Allergies Allergy Verified 04/23/18 21:04 - Meds/Allergy Pre-op Review Medications Reviewed: Yes Allergies Reviewed: Yes Beta Blockers on Current Med List: No Anesthesia Results - Labs 04/25/18 04:15 04/25/18 04:15 - Imaging EKG: report reviewed, image reviewed Anesthesia Exam Vital Signs/O2 Sat/Glucose, Most Recent Temp Pulse Resp BP Pulse Ox 98.8 F 96 18 152/105 100 04/25/18 11:47 04/25/18 11:47 04/25/18 11:47 04/25/18 11:47 04/25/18 11:47 Blood Glucose* 137 Height: 1.6 m Weight: 104 kg NPO (# of Hours): > 8 hr - HEENT Pupil (Motor): Pupils equal Mallampati: II Teeth: Normal Oral Opening: Greater than 3 - SUPERVISOR RECEIVING AND PROCESSING LOC: Oriented SUPERVISOR RECEIVING AND PROCESSING Motor: Normal RUE, Normal LUE, Normal RLE, Normal LLE, Normal Face SUPERVISOR RECEIVING AND PROCESSING Sensory: Normal: RUE, LUE, RLE, LLE, Face - Cardiac Rhythm: Regular Murmur: None - Pulmonary Breath Sounds: bilateral Clear Respiratory Effort: Symmetrical Anesthesia Assess/Plan ASA Score: 3 Modified Aretha Scale for Level of Consciousness: Cooperative, oriented, and tranquil Anesthetic Plan: MAC Monitoring Plan: Standard Monitors Recovery Plan: PACU
--- NOTE | 2018-04-25 13:12 | Internal Med Progress Note ---
Hospitalist Progress Note - Encounter Date of Encounter: 04/25/18 Time of Encounter: 13:10 - Subjective Interval History: No acute events overnight. No complaints. - Exam Vitals: Temp Pulse Resp BP Pulse Ox 98.8 F 96 18 152/105 100 04/25/18 11:47 04/25/18 11:47 04/25/18 11:47 04/25/18 11:47 04/25/18 11:47 Exam: Gen.: NAD, AAO x3 HEENT: Moist oral mucosa, sclerae is anicteric, conjunctiva is pink. Neuro: AAO X3 ,speech is normal, no facial paralysis, no focal weakness. Respiratory: CTAB Heart: S1, S2, regular rate and rhythm at this time. No murmurs. Abdomen:soft, non-tender, no palpably enlarged organs, bowel sounds present in all quadrants. Extremities: no pedal edema - Assessment and Plan (1) GI bleeding Current Visit: Yes Status: Acute Assessment and Plan: s/p push enteroscopy and sigmoidoscopy on 04/20 with evidence of hemorrhoids Witnessed LGIB according to RN S/P 4 units PRBC during this admission to date. Monitor Hb q12h, transfuse as needed. Colonoscopy today (2) Acute blood loss anemia Current Visit: Yes Status: Acute Assessment and Plan: likely due to GIB Continue RBC transgusion-4 units Monitor Hb q8-12h Currently hemodynamically stable C-scope today. Follow-up GI recs. (3) DM2 (diabetes mellitus, type 2) Current Visit: Yes Status: Chronic Assessment and Plan: FS ACHS when eating again SSI Resume diet when able to post colonoscopy (4) DVT prophylaxis Current Visit: Yes Status: Acute Assessment and Plan: SCDs (5) Leukocytosis Current Visit: Yes Status: Acute Assessment and Plan: Reactionary, due to GIB, improving, continue to monitor On Cipro and Flagyl by admitting team GI panel negative, may discontinued after intervention - Time Spent with Patient Total time spent is greater than 50% in coordination of care (as documented) at patient's floor/unit and/or counseling patient: Internal Medicine: Result - Labs CBC & Chem 7: 04/25/18 04:15 04/25/18 04:15 Labs: Short CBC 04/24/18 04/25/18 Range/Units 16:11 04:15 WBC 8.6 (4.3-11.1) K/mcL Hgb 10.7 L D 9.3 L (11.5-15.4) g/dL Hct 33.1 L 28.9 L (35.3-44.9) % Plt Count 233 (140-400) K/mcL Neutrophils # 6.1 (1.6-8.9) K/mcL BMP 04/25/18 04:15 Sodium 136 Potassium 3.8 Chloride 106 Carbon Dioxide 20 L BUN 9 Creatinine 0.56 L Glucose 153 H Calcium 8.3 L - ABG Interpretation ABG results: PT/INR, D-dimer PT 11.1 Seconds (9.4-12.1) 04/23/18 21:19 - VTE Documentation of Mechanical Device: Intermittent pneumatic compression device Consult Discharge Plan - Plan Referrals: Rogerio Jj MD [Partnered Physician] - (SENT WEB REQUEST ON 04-25-18 @ 1122) Renata Campbell MD [Primary Care Provider] - 04/27/18 4:30 pm (1) GI bleeding Qualifiers: GI bleed type/associated pathology: unspecified gastrointestinal hemorrhage type Qualified Code(s): K92.2 - Gastrointestinal hemorrhage, unspecified (3) DM2 (diabetes mellitus, type 2) Qualifiers: Diabetes mellitus rat exterminator insulin use: without rat exterminator use Diabetes mellitus complication status: without complication Qualified Code(s): E11.9 - Type 2 diabetes mellitus without complications (5) Leukocytosis Qualifiers: Leukocytosis type: unspecified Qualified Code(s): D72.829 - Elevated white blood cell count, unspecified
[2018-04-25] MEDS ORDERED: 0.9 % Sodium Chloride 500 ML IVC SCH (13:30)
[2018-04-25] MEDS ORDERED: Simethicone 40 MG/0.6 ML MLS IR ONE (13:38)
--- NOTE | 2018-04-25 13:59 | Anesthesia Evaluation Post Op ---
Date of Encounter: 04/25/18 Time of Encounter: 13:59 - Vital Signs Vital Signs: Vital Signs/O2 Sat/Glucose, Most Recent Temp Pulse Resp BP Pulse Ox 98.2 F 101 16 147/98 98 04/25/18 13:21 04/25/18 13:21 04/25/18 13:21 04/25/18 13:21 04/25/18 13:21 Blood Glucose* 137 - Lungs Lungs: Clear Ascult./Percussion - Airway Airway: Non-obstructed - Cardiovascular Regular Rate - Mental Status Mental Status: Alert & Oriented, Answers Appropriately - Pain Pain Scale: 0 - Nausea Vomiting Nausea Vomiting: Not Present - Hydration Hydration: NPO - Discharge PostOp Status: Transfer Patient to floor
[2018-04-26] MEDS: Insulin LISPRO 300 UNITS/3 ML VIAL SQ SCH ×2 (00:13→07:53)
[2018-04-26] MEDS: MetroNIDAZOLE 500 MG/100 ML 500 MG/100 ML BAG IVPB SCH ×2 (00:16→07:54)
[2018-04-26 05:36] LABS: Basophils % 0.3 %; Eosinophils # 0.2 K/mcL (0.0-0.6); Eosinophils % 3.1 %; Hematocrit 30.1 % (35.3-44.9); Hemoglobin 9.4 g/dL (11.5-15.4); Immature Granulocytes % 0.9 % (0-4); Lymphocytes # 1.7 K/mcL (0.6-4.6); Lymphocytes % 23.7 %; Mean Corpuscular HGB Conc 31.2 g/dL (31.6-35.5); Mean Corpuscular Hemoglobin 25.1 pg (28.0-33.3); Mean Corpuscular Volume 80.3 fL (83.0-100.0); Mean Platelet Volume 8.5 fL (9.4-12.4); Monocytes # 0.4 K/mcL (0.0-1.3); Neutrophils # 4.6 K/mcL (1.6-8.9); Platelet Count 207 K/mcL (140-400); Red Blood Count 3.75 M/mcL (3.82-4.97); Red Cell Distribution Width 19.6 % (11.5-14.5)
[2018-04-26 05:47] LABS: BUN/Creatinine Ratio 16 (6-26); Blood Urea Nitrogen 9 mg/dL (6-20); Calcium 8.7 mg/dL (8.6-10.3); Carbon Dioxide 22 mEq/L (23-29); Chloride 106 mEq/L (98-107); Glucose 234 mg/dL (70-105); Osmolality,Calculated 288 (280-300); Potassium 4.1 mEq/L (3.5-5.1); Sodium 136 mEq/L (136-145); eGFR For Non-African Americans > 60 (> 60)
[2018-04-26 07:21] VITALS: BP 153/102
[2018-04-26] MEDS ORDERED: metroNIDAZOLE 500 MG TABLET PO SCH (09:00)
[2018-04-26] MEDS ORDERED: Lisinopril-HCTZ 20-12.5mg TABLET PO SCH (09:00)
--- NOTE | 2018-04-26 10:14 | Discharge Summary ---
- NOTES TO OUTPATIENT PROVIDER Notes to Outpatient Provider: Follow-up with GI at an earlier scheduled appointment. Repeat CBC in 3 days. Orders not resulted at time of discharge: Pending orders 04/27/18 04:00 BMP [Basic Metabolic Panel] AM 0400 Complete Blood Count [HEME] AM 0400 Date of Encounter: 04/26/18 Time of Encounter: 10:10 - Discharge Diagnosis (1) GI bleeding Priority: Primary Status: Resolved Qualifiers: GI bleed type/associated pathology: unspecified gastrointestinal hemorrhage type Qualified Code(s): K92.2 - Gastrointestinal hemorrhage, unspecified (2) Acute blood loss anemia Priority: Secondary Status: Acute (3) DM2 (diabetes mellitus, type 2) Priority: Secondary Status: Chronic Qualifiers: Diabetes mellitus vermin exterminator insulin use: without shelter use Diabetes mellitus complication status: without complication Qualified Code(s): E11.9 - Type 2 diabetes mellitus without complications (4) DVT prophylaxis Priority: Secondary Status: Acute (5) Leukocytosis Priority: Secondary Status: Acute Qualifiers: Leukocytosis type: unspecified Qualified Code(s): D72.829 - Elevated white blood cell count, unspecified Hospital course: Ms. Loo is a 27 year old female who presented to the ER complaining of bloody bowel movements, weakness, lightheadedness, and palpitations. Workup in ER revealed patient to have an acute blood loss anemia with hemoglobin 7.2. She was also tachycardic and pale in complexion. She was therefore started on PRBC transfusion and admitted to the hospitalist service. She had normal blood pressure during this time. She had an upper endoscopy done recently 3 days ago and anoscopy which was appearantly normal outside of internal hemorrhoids. She was also seen to have a leukocytosis of 14k. She was transfused a total of 4 units PRBC during admission. She was placed on protonix drip and GI was consulted. She was emperically placed on Cipro/Flagyl in case of infectious etiology. Patient underwent colonoscopy on 04/25/18 which showed internal hemorrhoids but no other findings. Her hemoglobin was stable after monitoring for 2 days and she remained hemodynamically stable as well. She was discharged home to complete a course of Cipro/Flagyl and to follow-up with GI. She has an appointment with primary care tomorrow which she will keep this appointment as well. - Time Spent with Patient Total time spent providing and/or coordinating discharge services: - Discharge Medications Prescriptions: Ciprofloxacin [Cipro] 500 mg PO Q12HR #8 tablet metroNIDAZOLE [Flagyl] 500 mg PO TID #12 tablet Home Medications: Atorvastatin Calcium [Lipitor] 20 mg PO HS 10/12/17 [History] Lisinopril-HCTZ 20-12.5 [Prinzide 20-12.5] 1 tab PO DAILY 10/12/17 [History] Metformin HCl [Glucophage] 1,000 mg PO BID 10/12/17 [History] Norgestimate-Ethinyl Estradiol [Sprintec 28 Day Tablet] 1 tab PO DAILY 10/12/17 [History] Ferrous Sulfate [Iron] 325 mg PO BID 04/23/18 [History] Pantoprazole Sodium [Protonix] 40 mg PO DAILY 04/24/18 [History] Rifaximin [Xifaxan] 550 mg PO TID 04/24/18 [History] Ciprofloxacin [Cipro] 500 mg PO Q12HR #8 tablet 04/26/18 [Rx] metroNIDAZOLE [Flagyl] 500 mg PO TID #12 tablet 04/26/18 [Rx] Allergies/Adverse Reactions: 3 Allergy/AdvReac Type Severity Reaction Status Date / Time No Known Allergies Allergy Verified 04/23/18 21:04 Date of admission: 04/23/18 23:57 Primary care physician: Renata Campbell MD Discharging clinician: Zander Hernandez - Constitutional Vitals: Temp Pulse Resp BP Pulse Ox 98.4 F 99 18 153/102 99 04/26/18 07:16 04/26/18 07:16 04/26/18 07:16 04/26/18 07:16 04/26/18 07:16 General appearance: Present: cooperative, A&O X 3, pleasant, answers questions appropriately Exam: NAD - Head Head exam: Present: atraumatic, normocephalic - Eye Eye exam: Present: PERRL, conjuntiva pink, sclera anicteric Pupils: Present: PERRL - Neck Neck exam general surgery: Present: supple, trachea midline. Absent: lymphadenopathy - Respiratory Respiratory exam: Present: CTAB. Absent: accessory muscle use, rales, rhonchi, wheezes - Cardiovascular Cardiovascular exam: Present: RRR, +S1, +S2. Absent: diastolic murmur, gallop, rubs, systolic murmur - GI/Abdominal GI/Abdominal exam: Present: normal bowel sounds, soft, no peritoneal signs. Absent: distended, tenderness - Extremities Exam Extremities exam: Present: warm, radial pulses palpable and symmetrical. Absent : calf tenderness, cyanotic, pedal edema - Neurological Exam Neurological exam: Present: CN II-XII intact, oriented X3, no focal deficits. Absent: pronater drift, facial droop, speech deficit - Skin Skin exam: Present: dry, intact - Patient Status Disposition: Home, Self-Care Condition: Good Functional capacity at discharge: independent ambulation Overall status at discharge: patient is back to baseline - Discharge Instructions Follow Up With: Rogerio Jj MD [Partnered Physician] - (SENT WEB REQUEST ON 04-25-18 @ [phone]) Renata Campbell MD [Primary Care Provider] - 04/27/18 4:30 pm - Diet and Activity Activity: increase activity as tolerated Diet: diabetic diet - VTE Documentation of Mechanical Device: Intermittent pneumatic compression device
== END 2018-04-26 12:25 | disposition home or self-care (01) | DRG 378 ==
LOC: 2NNU 20:57 → EMEROOARM 20:57 → 2NNU 23:38 → SUATTDRO 23:57
PROVIDERS: ADMIT Family Medicine; ATTEND Internal Medicine